=== PATIENT | female | born 1945 | race Caucasian/White ===

== ENCOUNTER 2018-07-05 23:28 | Emergency (ER) | payer MEDICARE ==
[2018-07-06] MEDS ORDERED: DEXAMETHASONE 10 MG/ML VIAL ONE (00:30)
[2018-07-06] MEDS ORDERED: KETOROLAC 30 MG/ML INJ ONE (00:31)
[2018-07-06] MEDS ORDERED: NA CHLORIDE 0.9% 50 ML IV ONE (00:31)
--- NOTE | 2018-07-06 00:48 | ER ---
Nurse's Notes [facility] Name: Margret Farris Age: 73 yrs Sex: Female : 1945 Arrival Date: 07/05/2018 Time: 23:32 Bed 27 Private MD: Diagnosis: Pain in right foot;Unspecified kidney failure-insufficency Presentation: 07/06 00:30 Presenting complaint: Patient states: she has left foot pain since 1130 am today. mg2 denies trauma or fall. 00:30 Transition of care: patient was not received from another setting of care. Onset of mg2 symptoms was July 05, 2018 at 11:30. Risk Assessment: Do you want to hurt yourself or someone else? Patient reports no desire to harm self or others. Initial Sepsis Screen: Does the patient meet any 2 criteria? No. Patient's initial sepsis screen is negative. Does the patient have a suspected source of infection? No. Patient's initial sepsis screen is negative. Care prior to arrival: None. 00:30 Method Of Arrival: Wheelchair mg2 00:30 Acuity: SHARON 3 mg2 Triage Assessment: 01:00 General: Appears in no apparent distress. comfortable, Behavior is calm, cooperative. mg2 Pain: Complains of pain in left foot Pain does not radiate. Pain currently is 5 out of 10 on a pain scale. Quality of pain is described as aching, Pain began gradually, 1 day ago. EENT: No signs and/or symptoms were reported regarding the EENT system. Neuro: Level of Consciousness is awake, alert, obeys commands, Oriented to person, place, time, situation. Cardiovascular: Capillary refill < 3 seconds Patient's skin is warm and dry. Respiratory: Airway is patent Respiratory effort is even, unlabored, Respiratory pattern is regular, symmetrical. GI: No signs and/or symptoms were reported involving the gastrointestinal system. : No signs and/or symptoms were reported regarding the genitourinary system. Derm: Skin is intact, is healthy with good turgor, Skin is pink, warm \T\ dry. normal. Musculoskeletal: Circulation, motion, and sensation intact. Reports pain in left foot. Historical: - Allergies: 00:59 Augmentin; mg2 00:59 Bextra; mg2 00:59 Codeine; mg2 00:59 Ephedrine Analogues; mg2 00:59 Prednisone; mg2 00:59 Sulfa (Sulfonamide Antibiotics); mg2 00:59 TETRACYCLINES; mg2 - Home Meds: 00:59 aspirin 81 mg Oral TbEC 1 tab once daily [Active]; biotin 5000 mg Oral chew daily mg2 [Active]; Calcium Citrate Oral daily [Active]; Klor-Con 10 Oral [Active]; Lasix Oral [Active]; losartan Oral [Active]; magnesium oxide 250 mg Oral tab daily [Active]; spironolactone 25 mg Oral tab 1 tab 2 times per day [Active]; - PMHx: 00:59 High Cholesterol; Hypertension; seasonal allergies; TIA; mg2 - PSHx: 00:59 Tubal ligation; Lumpectomy; Hysterectomy; cervical fusions; mg2 - Immunization history:: Flu vaccine status is unknown. - Social history:: Smoking status: Patient/guardian denies using tobacco, Patient/guardian denies using alcohol, street drugs, IV drugs. - Family history:: not pertinent. - Ebola Screening: : No symptoms or risks identified at this time. Screenin:59 Abuse screen: Denies threats or abuse. Denies injuries from another. Nutritional mg2 screening: No deficits noted. Tuberculosis screening: No symptoms or risk factors identified. Fall Risk IV access (20 points). Assessment: 01:02 Reassessment: No changes from previously documented assessment. still waiting for lab mg2 results. 01:45 Reassessment: Patient appears in no apparent distress at this time. Patient and/or mg2 family updated on plan of care and expected duration. Pain level reassessed. Patient is alert, oriented x 3, equal unlabored respirations, skin warm/dry/pink. Vital Signs: 07/05 23:30 BP 132 / 74; Pulse 86; Resp 18; Temp 98.7; Pulse Ox 100% on R/A; Weight 65.77 kg; mg2 Height 5 ft. 4 in. (162.56 cm); Pain 5/10; 07/06 01:35 BP 130 / 78; Pulse 80; Resp 18; Pulse Ox 100% on R/A; Pain 2/10; mg2 07/05 23:30 Body Mass Index 24.89 (65.77 kg, 162.56 cm) mg2 ED Course: 07/05 23:32 Patient arrived in ED. ag3 23:37 Mychal Solis MD is Attending Physician. daily 23:43 Gardose, Ravin, RN is Primary Nurse. mg2 07/06 00:18 X-ray completed. Portable x-ray completed in exam room. Patient tolerated procedure sg4 well. 00:48 Fadi Honeycutt DPM is Referral Physician. daily 00:55 Foot Left 3 View In Process Unspecified. EDMS 00:55 Triage completed. mg2 01:01 Arm band placed on. mg2 01:01 No provider procedures requiring assistance completed. Inserted saline lock: 22 gauge mg2 in right wrist, using aseptic technique. Blood collected. 01:16 Kedar Potter MD is Referral Physician. daily 01:46 Patient has correct armband on for positive identification. mg2 01:46 IV discontinued, intact, bleeding controlled, No redness/swelling at site. Pressure mg2 dressing applied. 01:46 Ortho shoe applied to left foot. mg2 Administered Medications: 00:53 Drug: Decadron - Dexamethasone 10 mg Route: IVP; Site: right wrist; mg2 01:45 Follow up: Response: No adverse reaction; Marked relief of symptoms mg2 00:53 Drug: TORadol 30 mg Route: IVP; Site: right wrist; mg2 01:44 Follow up: Response: No adverse reaction; Marked relief of symptoms mg2 Outcome: 00:48 Discharge ordered by . daily 01:46 Discharged to home via wheelchair. mg2 01:46 Condition: stable 01:46 Discharge instructions given to patient, family, Instructed on discharge instructions, follow up and referral plans. medication usage, Demonstrated understanding of instructions, follow-up care, medications, Prescriptions given X 2. 01:47 Patient left the ED. mg2 Signatures: Dispatcher [employer] EDMS Mychal Solis MD MD cha Gardose, Michele, RN RN mg2 Laura Stock Susana sg4
--- NOTE | 2018-07-06 00:48 | EDPHYS ---
Physician Documentation [facility] Name: Margret Farris Age: 73 yrs Sex: Female : 1945 Arrival Date: 07/05/2018 Time: 23:32 Bed 27 Private MD: ED Physician Mychal Solis HPI: 07/06 00:03 This 73 yrs old Female presents to ER via Unassigned with complaints of Foot daily Pain. 00:03 The patient presents with decreased range of motion, pain, that is acute. The daily complaints affect the right foot, lateral aspect of right toes, plantar aspect of right first toe, plantar aspect of right second toe, plantar aspect of right third toe, plantar aspect of right fourth toe, plantar aspect of right fifth toe and ball of right foot. Context: The problem was sustained at home, resulted from. Onset: The symptoms/episode began/occurred 3 day(s) ago. Modifying factors: The symptoms are alleviated by elevation of extremity, the symptoms are aggravated by weight bearing, movement. Associated signs and symptoms: The patient has no apparent associated signs or symptoms. Severity of symptoms: At their worst the symptoms were moderate, in the emergency department the symptoms are unchanged. The patient has experienced similar episodes in the past, multiple times. Historical: - Allergies: 00:59 Augmentin; mg2 00:59 Bextra; mg2 00:59 Codeine; mg2 00:59 Ephedrine Analogues; mg2 00:59 Prednisone; mg2 00:59 Sulfa (Sulfonamide Antibiotics); mg2 00:59 TETRACYCLINES; mg2 - Home Meds: 00:59 aspirin 81 mg Oral TbEC 1 tab once daily [Active]; biotin 5000 mg Oral chew daily mg2 [Active]; Calcium Citrate Oral daily [Active]; Klor-Con 10 Oral [Active]; Lasix Oral [Active]; losartan Oral [Active]; magnesium oxide 250 mg Oral tab daily [Active]; spironolactone 25 mg Oral tab 1 tab 2 times per day [Active]; - PMHx: 00:59 High Cholesterol; Hypertension; seasonal allergies; TIA; mg2 - PSHx: 00:59 Tubal ligation; Lumpectomy; Hysterectomy; cervical fusions; mg2 - Immunization history:: Flu vaccine status is unknown. - Social history:: Smoking status: Patient/guardian denies using tobacco, Patient/guardian denies using alcohol, street drugs, IV drugs. - Family history:: not pertinent. - Ebola Screening: : No symptoms or risks identified at this time. ROS: 00:03 Constitutional: Negative for fever, chills, and weight loss, Eyes: Negative for injury, daily pain, redness, and discharge, ENT: Negative for injury, pain, and discharge, Neck: Negative for injury, pain, and swelling, Cardiovascular: Negative for chest pain, palpitations, and edema, Respiratory: Negative for shortness of breath, cough, wheezing, and pleuritic chest pain, Abdomen/GI: Negative for abdominal pain, nausea, vomiting, diarrhea, and constipation, Back: Negative for injury and pain, : Negative for injury, bleeding, discharge, and swelling, Skin: Negative for injury, rash, and discoloration, Neuro: Negative for headache, weakness, numbness, tingling, and seizure, Psych: Negative for depression, anxiety, suicide ideation, homicidal ideation, and hallucinations, Allergy/Immunology: Negative for hives, rash, and allergies, Endocrine: Negative for neck swelling, polydipsia, polyuria, polyphagia, and marked weight changes, Hematologic/Lymphatic: Negative for swollen nodes, abnormal bleeding, and unusual bruising. 00:03 MS/extremity: Positive for pain, tenderness, of the lateral aspect of right toes, medial aspect of right toes, plantar aspect of right first toe, plantar aspect of right second toe, plantar aspect of right third toe, plantar aspect of right fourth toe, plantar aspect of right fifth toe and ball of right foot. Exam: 00:03 Constitutional: This is a well developed, well nourished patient who is awake, alert, daily and in no acute distress. Head/Face: Normocephalic, atraumatic. Eyes: Pupils equal round and reactive to light, extra-ocular motions intact. Lids and lashes normal. Conjunctiva and sclera are non-icteric and not injected. Cornea within normal limits. Periorbital areas with no swelling, redness, or edema. ENT: Nares patent. No nasal discharge, no septal abnormalities noted. Tympanic membranes are normal and external auditory canals are clear. Oropharynx with no redness, swelling, or masses, exudates, or evidence of obstruction, uvula midline. Mucous membranes moist. Neck: Trachea midline, no thyromegaly or masses palpated, and no cervical lymphadenopathy. Supple, full range of motion without nuchal rigidity, or vertebral point tenderness. No Meningismus. Chest/axilla: Normal chest wall appearance and motion. Nontender with no deformity. No lesions are appreciated. Cardiovascular: Regular rate and rhythm with a normal S1 and S2. No gallops, murmurs, or rubs. Normal PMI, no JVD. No pulse deficits. Respiratory: Lungs have equal breath sounds bilaterally, clear to auscultation and percussion. No rales, rhonchi or wheezes noted. No increased work of breathing, no retractions or nasal flaring. Abdomen/GI: Soft, non-tender, with normal bowel sounds. No distension or tympany. No guarding or rebound. No evidence of tenderness throughout. Back: No spinal tenderness. No costovertebral tenderness. Full range of motion. Female : Normal external genitalia. Skin: Warm, dry with normal turgor. Normal color with no rashes, no lesions, and no evidence of cellulitis. Neuro: Awake and alert, GCS 15, oriented to person, place, time, and situation. Cranial nerves II-XII grossly intact. Motor strength 5/5 in all extremities. Sensory grossly intact. Cerebellar exam normal. Normal gait. Psych: Awake, alert, with orientation to person, place and time. Behavior, mood, and affect are within normal limits. 00:03 Musculoskeletal/extremity: DVT Exam: no swelling, negative Homans' sign noted on exam, no appreciated bluish discoloration, no erythema, no increased warmth, pain, tenderness. 01:10 Musculoskeletal/extremity: Extremities: noted in the lateral aspect of right toes, daily plantar aspect of right first toe, plantar aspect of right second toe, plantar aspect of right third toe, plantar aspect of right fourth toe, plantar aspect of right fifth toe and ball of right foot: decreased ROM, pain, ROM: limited active range of motion, limited passive range of motion, Circulation is intact in all extremities. Sensation intact. Compartment Syndrome exam of affected extremity: is normal. Weight bearing: can bear weight with assistance only. Vital Signs: 07/05 23:30 BP 132 / 74; Pulse 86; Resp 18; Temp 98.7; Pulse Ox 100% on R/A; Weight 65.77 kg; mg2 Height 5 ft. 4 in. (162.56 cm); Pain 5/10; 12/22 01:35 BP 130 / 78; Pulse 80; Resp 18; Pulse Ox 100% on R/A; Pain 2/10; mg2 07/05 23:30 Body Mass Index 24.89 (65.77 kg, 162.56 cm) mg2 MDM: 07/05 23:37 Patient medically screened. [facility] 07/06 00:06 Data reviewed: vital signs, nurses notes, lab test result(s), radiologic studies, plain [facility] films. 07/06 00:03 Order name: CBC with Diff; Complete Time: 01:14 [facility] 07/06 00:03 Order name: Comprehensive Metabolic Panel; Complete Time: 01:14 [facility] 07/06 00:03 Order name: Sed Rate; Complete Time: :14 [facility] 07/06 00:16 Order name: Foot Left 3 View EDMS 07/06 00:07 Order name: Post-op shoe; Complete Time: 01:44 [facility] Administered Medications: 00:53 Drug: Decadron - Dexamethasone 10 mg Route: IVP; Site: right wrist; mg2 01:45 Follow up: Response: No adverse reaction; Marked relief of symptoms mg2 00:53 Drug: TORadol 30 mg Route: IVP; Site: right wrist; mg2 01:44 Follow up: Response: No adverse reaction; Marked relief of symptoms mg2 Disposition: 07/06/18 00:48 Discharged to Home. Impression: Pain in right foot, Unspecified kidney failure - insufficency. - Condition is Stable. - Discharge Instructions: Sosa Neuralgia, Chronic Kidney Disease, Adult, [id number], Foot Pain. - Prescriptions for Tramadol 50 mg Oral Tablet - take 1 tablet by ORAL route every 8 hours as needed; 12 tablet. Medrol (Pool) 4 mg Oral Tablets, Dose Pack - take 1 tablet by ORAL route as directed - follow package instructions; 1 packet. - Medication Reconciliation Form, Thank You Letter, Antibiotic Education, Prescription Opioid Use form. - Follow up: Private Physician; When: 2 - 3 days; Reason: Recheck today's complaints, Continuance of care, Re-evaluation by your physician. Follow up: Dr. Fadi Honeycutt; When: 2 - 3 days; Reason: Recheck today's complaints, Re-evaluation by your physician. Follow up: Kedar Potter MD; When: 2 - 3 days; Reason: Recheck today's complaints, Re-evaluation by your physician. - Problem is new. - Symptoms have improved. Signatures: Dispatcher [employer] [facility] Mychal Solis MD MD cha Gardose, Michele, RN RN mg2 Corrections: (The following items were deleted from the chart) 00:16 00:04 Foot Right 3 View+[email or web address] ordered. [facility] 01:15 00:48 07/06/2018 00:48 Discharged to Home. Impression: Pain in right foot. Condition is daily Stable. Discharge Instructions: Foot Pain, Sosa Neuralgia. Prescriptions for ketorolac 10 mg Oral tablet - take 1 tablet by ORAL route every 6 hours for up to 5 days total use; 20 tablet, Tramadol 50 mg Oral Tablet - take 1 tablet by ORAL route every 8 hours as needed; 12 tablet. and Forms are Medication Reconciliation Form, Thank You Letter, Antibiotic Education, Prescription Opioid Use. Follow up: Private Physician; When: 2 - 3 days; Reason: Recheck today's complaints, Continuance of care, Re-evaluation by your physician. Follow up: Dr. Fadi Honeycutt; When: 2 - 3 days; Reason: Recheck today's complaints, Re-evaluation by your physician. Problem is new. Symptoms have improved. [facility] :16 01:15 07/06/2018 00:48 Discharged to Home. Impression: Pain in right foot; Unspecified daily kidney failure - insufficency. Condition is Stable. Discharge Instructions: Foot Pain, Sosa Neuralgia. Prescriptions for ketorolac 10 mg Oral tablet - take 1 tablet by ORAL route every 6 hours for up to 5 days total use; 20 tablet, Tramadol 50 mg Oral Tablet - take 1 tablet by ORAL route every 8 hours as needed; 12 tablet. and Forms are Medication Reconciliation Form, Thank You Letter, Antibiotic Education, Prescription Opioid Use. Follow up: Private Physician; When: 2 - 3 days; Reason: Recheck today's complaints, Continuance of care, Re-evaluation by your physician. Follow up: Dr. Fadi Honeycutt; When: 2 - 3 days; Reason: Recheck today's complaints, Re-evaluation by your physician. Problem is new. Symptoms have improved. daily 01:47 01:16 07/06/2018 00:48 Discharged to Home. Impression: Pain in right foot; Unspecified mg2 kidney failure - insufficency. Condition is Stable. Discharge Instructions: Foot Pain, Sosa Neuralgia. Prescriptions for ketorolac 10 mg Oral tablet - take 1 tablet by ORAL route every 6 hours for up to 5 days total use; 20 tablet, Tramadol 50 mg Oral Tablet - take 1 tablet by ORAL route every 8 hours as needed; 12 tablet. and Forms are Medication Reconciliation Form, Thank You Letter, Antibiotic Education, Prescription Opioid Use. Follow up: Private Physician; When: 2 - 3 days; Reason: Recheck today's complaints, Continuance of care, Re-evaluation by your physician. Follow up: Dr. Fadi Honeycutt; When: 2 - 3 days; Reason: Recheck today's complaints, Re-evaluation by your physician. Follow up: Kedar Potter; When: 2 - 3 days; Reason: Recheck today's complaints, Re-evaluation by your physician. Problem is new. Symptoms have improved. daily
[2018-07-06 00:49] LABS: Absolute Lymphocytes (CBC) 2.9 K/uL (0.7-4.9); Absolute Monocytes 0.6 K/uL (0.1-1.3); Absolute Neutrophil 4.5 K/uL (1.8-8.0); Basophils % 0.6 % (0-1.3); Eosinophils % 2.7 % (0-4.4); Hematocrit 46.2 % (36.0-45.0); Lymphocytes % 34.8 % (15.3-44.8); MPV 8.8 fL (7.6-11.3); Monocytes % 7.6 % (3.3-12.3); RBC Red Blood Cell Count 4.82 M/uL (3.86-4.86)
[2018-07-06 01:12] LABS: Albumin 3.9 g/dL (3.4-5.0); Bilirubin Total 0.3 mg/dL (0.2-1.0); Protein, Total 8.1 g/dL (6.4-8.2)
[2018-07-06 02:48] VITALS: BP 132/74; TEMP 98.7; O2SAT 100
--- NOTE | 2018-07-06 09:27 | RAD REPORT ---
EXAM DESCRIPTION: RAD - Foot Left 3 View - 07/06/2018 12:54 am CLINICAL HISTORY: Left Foot pain FINDINGS: No fracture or dislocation is seen.
== END 2018-07-06 01:47 | disposition home or self-care (01) ==
LOC: ER 23:28
DX: M79.671 Pain in right foot (principal); N28.9 Disorder of kidney and ureter, unspecified; E78.00 Pure hypercholesterolemia, unspecified; I10 Essential (primary) hypertension; Z79.82 Long term (current) use of aspirin; Z79.899 Other long term (current) drug therapy; Z86.73 Personal history of transient ischemic attack (TIA), and cerebral infarction without residual deficits
CPT/HCPCS: 36415; 73630; 80053; 85025; 85652; 96374; 96375; 99284; J1100

== ENCOUNTER 2019-03-18 15:26 | Emergency (ER) | payer MEDICARE ==
[2019-03-18 15:52] LABS: Absolute Lymphocytes (CBC) 2.8 K/uL (0.7-4.9); Basophils % 0.7 % (0-1.3); Hematocrit 44.4 % (36.0-45.0); Lymphocytes % 41.4 % (15.3-44.8); MPV 8.4 fL (7.6-11.3); RBC Red Blood Cell Count 4.62 M/uL (3.86-4.86)
[2019-03-18 15:57] LABS: Protime INR 0.94
[2019-03-18 16:12] LABS: Potassium 3.8 mmol/L (3.5-5.1)
[2019-03-18] MEDS ORDERED: NA CHLORIDE 0.9% 1,000 ML ONE (16:12)
[2019-03-18] MEDS ORDERED: FOLIC ACID 5 MG/ML VIAL ONE (16:12)
--- NOTE | 2019-03-18 16:35 | RAD REPORT ---
EXAM DESCRIPTION: CT - Head Brain Wo Cont - 03/18/2019 4:11 pm CLINICAL HISTORY: Visual changes, TIA, hypertension COMPARISON: CT October 2017 TECHNIQUE: Axial 5 mm thick images of the head were obtained without IV contrast. All CT scans are performed using dose optimization technique as appropriate and may include automated exposure control or mA/KV adjustment according to patient size. FINDINGS: No intracranial hemorrhage, mass, edema or shift of mid-line structures. No acute infarcti on changes seen. No abnormal extra-axial fluid collections. Ventricles are normal. No significant atr ophy changes. Patient does have chronic ischemic change in the cerebral white matter similar to onur rison. Mastoid air cells and visualized portions of the paranasal sinuses are clear. No acute bony findings. IMPRESSION: No acute intracranial finding seen. Chronic ischemic changes are similar to the October study.
--- NOTE | 2019-03-18 17:11 | RAD REPORT ---
EXAM DESCRIPTION: CT - Head angio - 03/18/2019 4:57 pm CLINICAL HISTORY: Visual disturbances;Aphasia TECHNIQUE: During dynamic enhancement using nonionic IV contrast, axial 1 millimeter thick images of the head were obtained. Sagittal and axial reconstruction images were generated using MIP technique and reviewed. All CT scans are performed using dose optimization technique as appropriate and may include automated exposure control or mA/KV adjustment according to patient size. COMPARISON: CT head March 18 FINDINGS: No aneurysm or vascular malformation identified. Major venous sinuses are patent. No stenosis, named branch occlusion, vasculitis or other significant vascular finding identifiable. IMPRESSION: Negative CT angio head examination.
--- NOTE | 2019-03-18 17:32 | RAD REPORT ---
EXAM DESCRIPTION: MRI - Brain Wo Cont - 03/18/2019 5:23 pm CLINICAL HISTORY: Dizziness;Visual disturbances COMPARISON: CT head same date, MR brain 2017 TECHNIQUE: Sagittal T1-weighted images were obtained along with axial PD, heavily T2-weighted and T2 -FLAIR images. Axial DWI and ADC mapping sequences were also obtained along with coronal heavily T2-w eighted images. FINDINGS: No intracranial hemorrhage, mass or acute infarction. There is no edema or shift of midlin e structures. No extra-axial fluid collections. Andres-matter/white matter junction is preserved. Signa l voids are seen as a normal finding in the major intracranial vessels. Atrophy changes are mild and stable. Chronic ischemic changes are scattered throughout the cerebral w carlito matter showing little or no progression from 2017. Ventricles are in proportion to any volume lo ss. Mastoid air cells and paranasal sinuses are clear. No globe or orbital content acute finding. No sella or supra sella abnormality. IMPRESSION: No acute infarction. No acute intracranial finding. Atrophy and chronic ischemic changes are present but show little or no progression from 2017.
--- NOTE | 2019-03-18 17:34 | EKG ---
Test Date: 2019-03-18 Test Time: 15:49:04 Refueling Rampman: DURAN MEASUREMENT RESULTS: Intervals: Rate: 73 MI: 130 QRSD: 74 QT: 388 QTc: 427 [place]: P: 30 MI: 130 QRS: 24 T: 49 INTERPRETIVE STATEMENTS: Normal sinus rhythm Normal ECG Compared to ECG 11/28/2016 19:36:44 Myocardial infarct finding no longer present Electronically Signed On 03-18-19 17:33:36 CDT by Tre Durham
--- NOTE | 2019-03-18 17:48 | ER ---
Nurse's Notes [facility] Name: Margret Farris Age: 73 yrs Sex: Female : 1945 Arrival Date: 03/18/2019 Time: 15:31 Bed 3 Private MD: Diagnosis: Transient cerebral ischemic attack, unspecified;Visual disturbances Presentation: 03/18 15:31 Presenting complaint: Patient states: Sitting at computer when patient experienced ss sudden onset of bright light to her R eye lasting ten minutes. Patient reports that when she gets anxious her stomach begins to bother her and her whole body begins to tingle. On arrival to ED, patient reports that her symptoms have completely resolved at this time. Transition of care: patient was not received from another setting of care. Onset of symptoms was March 18, 2019. Risk Assessment: Do you want to hurt yourself or someone else? Patient reports no desire to harm self or others. Initial Sepsis Screen: Does the patient meet any 2 criteria? No. Patient's initial sepsis screen is negative. Does the patient have a suspected source of infection? No. Patient's initial sepsis screen is negative. Care prior to arrival: None. 15:31 Method Of Arrival: EMS: [facility] 15:31 Acuity: SHARON 3 ss Triage Assessment: 15:31 General: Appears in no apparent distress. comfortable, well groomed, well developed, sv Behavior is calm, cooperative, appropriate for age. Pain: Denies pain. Neuro: Level of Consciousness is awake, alert, obeys commands, Oriented to person, place, time, situation, Retail Service Representative are equal bilaterally Moves all extremities. Gait is steady, Speech is normal, Facial symmetry appears normal, Denies blurred vision dizziness, numbness headache diplopia. Respiratory: Airway is patent Respiratory effort is even, unlabored, Respiratory pattern is regular, symmetrical. Derm: Skin is pink, warm \T\ dry. Historical: - Allergies: 15:33 Augmentin; ss 15:33 Bextra; ss 15:33 Codeine; ss 15:33 Ephedrine Analogues; ss 15:33 Prednisone; ss 15:33 Sulfa (Sulfonamide Antibiotics); ss 15:33 TETRACYCLINES; ss - PMHx: 15:33 High Cholesterol; Hypertension; seasonal allergies; TIA; ss - PSHx: 15:33 Tubal ligation; Lumpectomy; Hysterectomy; cervical fusions; ss - Immunization history:: Pneumococcal vaccine is not up to date, Flu vaccine is not up to date. - Social history:: Smoking status: Patient/guardian denies using tobacco. - Ebola Screening: : Patient denies exposure to infectious person Patient denies travel to an Ebola-affected area in the 21 days before illness onset. - Family history:: not pertinent. Screenin:34 Abuse screen: Denies threats or abuse. Denies injuries from another. Nutritional sv screening: No deficits noted. Tuberculosis screening: No symptoms or risk factors identified. Fall Risk None identified. 15:35 Patient has been NPO before screening. The patient is alert, able to follow commands. sv The patient does not exhibit slurred or garbled speech The patient is not exhibiting difficulty speaking. The patient does not exhibit difficulty understanding words. The patient is able to swallow own secretions with no drooling or need for suction. Patient tolerated one teaspoon of water. No drooling, immediate coughing, gurgling, or clearing of the throat was noted. The patient tolerated 90mL of water. No drooling, immediate coughing, gurgling, or clearing of the throat was noted. The patient passed the bedside swallow screening. Oral medications may be given as ordered. Contact Physician for further diet orders. Provider notified of bedside swallow screening results: Mychal Solis MD. Assessment: 15:59 Reassessment: Dr Solis at bedside. sv 16:30 Reassessment: Patient appears in no apparent distress at this time. No changes from sv previously documented assessment. Patient and/or family updated on plan of care and expected duration. Pain level reassessed. Patient is alert, oriented x 3, equal unlabored respirations, skin warm/dry/pink. 17:50 Reassessment: Patient appears in no apparent distress at this time. No changes from sv previously documented assessment. Patient and/or family updated on plan of care and expected duration. Pain level reassessed. Patient is alert, oriented x 3, equal unlabored respirations, skin warm/dry/pink. 18:05 Reassessment: Pt waiting on radiology results before discharge. sv 19:34 Reassessment: Patient is alert, oriented x 3, equal unlabored respirations, skin lp1 warm/dry/pink. Patient states feeling better. General: Appears in no apparent distress. Neuro: Gait is steady, Speech is normal. Vital Signs: 15:33 Pulse 72; Resp 16; Temp 98.0(O); Pulse Ox 100% on R/A; Weight 63.5 kg; Height 5 ft. 0 ss in. (152.40 cm); Pain 0/10; 15:41 BP 143 / 84; sv 16:30 BP 138 / 77; Pulse 69; Resp 12; Pulse Ox 100% ; sv 18:04 BP 111 / 83; Pulse 72; Resp 14; Pulse Ox 100% on R/A; sv 18:45 BP 110 / 70; Pulse 64; Resp 14; Pulse Ox 100% ; sv 15:33 Body Mass Index 27.34 (63.50 kg, 152.40 cm) ss NIH Stroke Scale Scores: 15:35 NIHSS Score: 0 sv 17:32 NIHSS Score: 0 daily ED Course: 15:25 Initial lab(s) drawn, by me, sent to lab. Inserted saline lock: 20 gauge in right sv antecubital area, using aseptic technique. Blood collected. Flushed right antecubital with 5 ml normal saline. 15:25 radiation monitor on. Pulse ox on. NIBP on. sv 15:31 Patient arrived in ED. ss 15:32 Ina Quinn, RN is Primary Nurse. sv 15:33 Triage completed. ss 15:33 Arm band placed on right wrist. ss 15:34 Patient has correct armband on for positive identification. Placed in gown. Bed in low sv position. Call light in reach. Side rails up X2. 15:48 Basic Metabolic Panel Sent. sv 15:48 CBC with Diff Sent. sv 15:48 Protime (+inr) Sent. sv 15:48 Ptt, Activated Sent. sv 15:52 EKG done, by fiber technician. reviewed by Mychal Solis MD. sm3 15:53 Mychal Solis MD is Attending Physician. daily 16:21 CT Head Brain wo Cont In Process Unspecified. EDMS 16:[address] via wheelchair. sv 17:13 CT Head Angio In Process Unspecified. EDMS 17:26 Brain Wo Cont In Process Unspecified. EDMS 17:42 US Carotid Artery Bilateral In Process Unspecified. EDMS 17:47 Jamie Lim MD is Referral Physician. daily 17:47 Michael Geiger MD is Referral Physician. daily 18:02 Urine collected: clean catch specimen, clear. jl7 18:05 Awaiting radiology results. sv 19:16 Primary Nurse role handed off by Ina Quinn RN sv 19:34 Sri Perry, SANTO is Primary Nurse. lp1 19:35 No provider procedures requiring assistance completed. IV discontinued, No lp1 redness/swelling at site. Pressure dressing applied. Administered Medications: 16:17 Drug: NS 0.9% 1000 ml Route: IV; Rate: 1 bolus; Site: right antecubital; sv 18:45 Follow up: Response: No adverse reaction; IV Status: Completed infusion; IV Intake: jl7 1000ml 16:17 Drug: foLIC Acid 1 mg Route: IVPB; Site: right antecubital; sv 18:44 Follow up: Response: No adverse reaction; IV Status: Completed infusion jl7 18:04 Drug: Aspirin Chewable Tablet 162 mg {Note: pt took 2 81 mg before coming.} Route: PO; sv 18:44 Follow up: Response: No adverse reaction jl7 Point of Care Testing: Blood Glucose: 15:33 Blood Glucose: 115 mg/dL; sv Ranges: Intake: 18:45 IV: 1000ml; Total: 1000ml. jl7 Outcome: 17:46 Discharge ordered by . daily 19:35 Discharged to home ambulatory. lp1 19:35 Condition: good 19:35 Discharge instructions given to patient, Instructed on discharge instructions, follow up and referral plans. medication usage, Demonstrated understanding of instructions, follow-up care, medications, Prescriptions given X 1. 19:35 Patient left the ED. lp1 NIH Stroke Scale - NIH Stroke Score Date: 03/18/2019 Time: 15:35 Total Score = 0 1a. Level of Consciousness (LOC) - 0(Alert) 1b. Level of Consciousness (LOC) (Year \T\ Age) - 0(Both) 1c. LOC Commands (Open \T\ Closes Eyes/Lead Case Manager) - 0(Both) 2. Best Gaze (Lateral Gaze Paresis) - 0(Normal) 3. Visual Field Loss - 0(No visual loss) 4. Facial Palsy - 0(Normal) 5a. Left Arm: Motor (10-second hold) - 0(No drift) 5b. Right Arm: Motor (10-second hold) - 0(No drift) 6a. Left Leg: Motor (5-second hold - always test supine) - 0(No drift) 6b. Right Leg: Motor (5-second hold - always test supine) - 0(No drift) 7. Limb Ataxia (finger/nose \T\ heel/wallace - test with eyes open) - 0(Absent) 8. Sensory Loss (pinprick arms/legs/face) - 0(Normal) 9. Best Language: Aphasia (description/naming/reading) - 0(No aphasia) 10. Dysarthria (speech clarity - read or repeat words) - 0(Normal) 11. Extinction and Inattention (visual/tactile/auditory/spatial/personal) - 0(No abnormality) Initials: lorna NIH Stroke Scale - NIH Stroke Score Date: 03/18/2019 Time: 17:32 Total Score = 0 1a. Level of Consciousness (LOC) - 0(Alert) 1b. Level of Consciousness (LOC) (Year \T\ Age) - 0(Both) 1c. LOC Commands (Open \T\ Closes Eyes/Lead Case Manager) - 0(Both) 2. Best Gaze (Lateral Gaze Paresis) - 0(Normal) 3. Visual Field Loss - 0(No visual loss) 4. Facial Palsy - 0(Normal) 5a. Left Arm: Motor (10-second hold) - 0(No drift) 5b. Right Arm: Motor (10-second hold) - 0(No drift) 6a. Left Leg: Motor (5-second hold - always test supine) - 0(No drift) 6b. Right Leg: Motor (5-second hold - always test supine) - 0(No drift) 7. Limb Ataxia (finger/nose \T\ heel/wallace - test with eyes open) - 0(Absent) 8. Sensory Loss (pinprick arms/legs/face) - 0(Normal) 9. Best Language: Aphasia (description/naming/reading) - 0(No aphasia) 10. Dysarthria (speech clarity - read or repeat words) - 0(Normal) 11. Extinction and Inattention (visual/tactile/auditory/spatial/personal) - 0(No abnormality) Initials: daily Signatures: Dispatcher [employer] Ina Courtney RN RN sv Anderson, Corey, MD MD cha Smirch, Shelby, RN RN ss Sri Perry RN RN lp1 Lisa Duran RN RN jl7 vIonne De La Cruz sm3 Corrections: (The following items were deleted from the chart) 18:05 18:04 Aspirin Chewable Tablet 162 mg PO sv sv
--- NOTE | 2019-03-18 17:49 | EDPHYS ---
Physician Documentation [facility] Name: Margret Farris Age: 73 yrs Sex: Female : 1945 Arrival Date: 03/18/2019 Time: 15:31 Bed 3 Private MD: ED Physician Mychal Solis HPI: 03/18 16:08 This 73 yrs old Female presents to ER via EMS with complaints of Vision daily Problem. 16:08 The patient is experiencing blurred vision. Onset: The symptoms/episode began/occurred daily at 14:00. Duration: the symptoms last 15 minute(s). The patient's problem is reported as dysphasia, slurred speech. Duration: The episode is continuous. The symptoms are alleviated by nothing. The symptoms are aggravated by nothing. Associated signs and symptoms: Pertinent positives: nausea. Patient wears glasses. Severity of symptoms: At their worst the symptoms were mild in the emergency department the symptoms are unchanged. Patient's baseline: Neuro: alert and fully oriented. Historical: - Allergies: 15:33 Augmentin; ss 15:33 Bextra; ss 15:33 Codeine; ss 15:33 Ephedrine Analogues; ss 15:33 Prednisone; ss 15:33 Sulfa (Sulfonamide Antibiotics); ss 15:33 TETRACYCLINES; ss - PMHx: 15:33 High Cholesterol; Hypertension; seasonal allergies; TIA; ss - PSHx: 15:33 Tubal ligation; Lumpectomy; Hysterectomy; cervical fusions; ss - Immunization history:: Pneumococcal vaccine is not up to date, Flu vaccine is not up to date. - Social history:: Smoking status: Patient/guardian denies using tobacco. - Ebola Screening: : Patient denies exposure to infectious person Patient denies travel to an Ebola-affected area in the 21 days before illness onset. - Family history:: not pertinent. ROS: 16:08 Constitutional: Negative for fever, chills, and weight loss, Eyes: Negative for injury, daily pain, redness, and discharge, ENT: Negative for injury, pain, and discharge, Neck: Negative for injury, pain, and swelling, Cardiovascular: Negative for chest pain, palpitations, and edema, Respiratory: Negative for shortness of breath, cough, wheezing, and pleuritic chest pain, Abdomen/GI: Negative for abdominal pain, nausea, vomiting, diarrhea, and constipation, Back: Negative for injury and pain, : Negative for injury, bleeding, discharge, and swelling, MS/Extremity: Negative for injury and deformity, Skin: Negative for injury, rash, and discoloration, Psych: Negative for depression, anxiety, suicide ideation, homicidal ideation, and hallucinations, Allergy/Immunology: Negative for hives, rash, and allergies, Endocrine: Negative for neck swelling, polydipsia, polyuria, polyphagia, and marked weight changes, Hematologic/Lymphatic: Negative for swollen nodes, abnormal bleeding, and unusual bruising. 16:08 Neuro: Positive for speech changes, visual changes. Exam: 16:08 Constitutional: This is a well developed, well nourished patient who is awake, alert, daily and in no acute distress. Head/Face: Normocephalic, atraumatic. Eyes: Pupils equal round and reactive to light, extra-ocular motions intact. Lids and lashes normal. Conjunctiva and sclera are non-icteric and not injected. Cornea within normal limits. Periorbital areas with no swelling, redness, or edema. ENT: Nares patent. No nasal discharge, no septal abnormalities noted. Tympanic membranes are normal and external auditory canals are clear. Oropharynx with no redness, swelling, or masses, exudates, or evidence of obstruction, uvula midline. Mucous membranes moist. Neck: Trachea midline, no thyromegaly or masses palpated, and no cervical lymphadenopathy. Supple, full range of motion without nuchal rigidity, or vertebral point tenderness. No Meningismus. Chest/axilla: Normal chest wall appearance and motion. Nontender with no deformity. No lesions are appreciated. Cardiovascular: Regular rate and rhythm with a normal S1 and S2. No gallops, murmurs, or rubs. Normal PMI, no JVD. No pulse deficits. Respiratory: Lungs have equal breath sounds bilaterally, clear to auscultation and percussion. No rales, rhonchi or wheezes noted. No increased work of breathing, no retractions or nasal flaring. Abdomen/GI: Soft, non-tender, with normal bowel sounds. No distension or tympany. No guarding or rebound. No evidence of tenderness throughout. Back: No spinal tenderness. No costovertebral tenderness. Full range of motion. Skin: Warm, dry with normal turgor. Normal color with no rashes, no lesions, and no evidence of cellulitis. MS/ Extremity: Pulses equal, no cyanosis. Neurovascular intact. Full, normal range of motion. Neuro: Awake and alert, GCS 15, oriented to person, place, time, and situation. Cranial nerves II-XII grossly intact. Motor strength 5/5 in all extremities. Sensory grossly intact. Cerebellar exam normal. Normal gait. Psych: Awake, alert, with orientation to person, place and time. Behavior, mood, and affect are within normal limits. 17:33 Radiologist reports: negative [facility] Vital Signs: 15:33 Pulse 72; Resp 16; Temp 98.0(O); Pulse Ox 100% on R/A; Weight 63.5 kg; Height 5 ft. 0 ss in. (152.40 cm); Pain 0/10; 15:41 BP 143 / 84; sv 16:30 BP 138 / 77; Pulse 69; Resp 12; Pulse Ox 100% ; sv 18:04 BP 111 / 83; Pulse 72; Resp 14; Pulse Ox 100% on R/A; sv 18:45 BP 110 / 70; Pulse 64; Resp 14; Pulse Ox 100% ; sv 15:33 Body Mass Index 27.34 (63.50 kg, 152.40 cm) NIH Stroke Scale Scores: 15:35 NIHSS Score: 0 sv 17:32 NIHSS Score: 0 [facility] MDM: 15:53 Patient medically screened. [facility] 16:11 Data reviewed: vital signs, nurses notes, lab test result(s), EKG, radiologic studies, [facility] CT scan, plain films. 16:16 ED course: speech 95 % back to normal, no tpa. [facility] 03/18 15:33 Order name: Basic Metabolic Panel; Complete Time: 16:53 03/18 15:33 Order name: CBC with Diff 03/18 15:33 Order name: Protime (+inr) 03/18 15:33 Order name: Ptt, Activated 03/18 15:57 Order name: CBC with Automated Diff; Complete Time: 16:08 EDMS 03/18 15:59 Order name: Protime (+INR); Complete Time: 16:08 EDMS 03/18 15:45 Order name: CT Head Brain wo Cont 03/18 15:59 Order name: PTT, Activated Partial Thromb; Complete Time: 16:08 EDMS 03/18 16:07 Order name: CT Head Angio [facility] 03/18 16:54 Order name: Urine Culture [facility] 03/18 17:02 Order name: US Carotid Artery Bilateral [facility] 03/18 17:14 Order name: Brain Wo Cont EDMS 03/18 18:07 Order name: Urine Dipstick--Ancillary (enter results); Complete Time: 18:38 em1 03/18 15:33 Order name: EKG; Complete Time: 15:34 sv 03/18 15:33 Order name: Accucheck; Complete Time: 15:33 sv 03/18 15:33 Order name: Cardiac monitoring; Complete Time: 15:33 sv 03/18 15:33 Order name: EKG - Nurse/Tech; Complete Time: 15:48 sv 03/18 15:33 Order name: IV Saline Lock; Complete Time: 15:33 sv 03/18 15:33 Order name: Labs collected and sent; Complete Time: 15:33 sv 03/18 15:33 Order name: O2 Per Protocol; Complete Time: 15:33 sv 03/18 15:33 Order name: O2 Sat Monitoring; Complete Time: 15:33 sv 03/18 16:54 Order name: Urine Dipstick-Ancillary (obtain specimen); Complete Time: 18:02 [facility] Administered Medications: 16:17 Drug: NS 0.9% 1000 ml Route: IV; Rate: 1 bolus; Site: right antecubital; sv 18:45 Follow up: Response: No adverse reaction; IV Status: Completed infusion; IV Intake: jl7 1000ml 16:17 Drug: foLIC Acid 1 mg Route: IVPB; Site: right antecubital; sv 18:44 Follow up: Response: No adverse reaction; IV Status: Completed infusion jl7 18:04 Drug: Aspirin Chewable Tablet 162 mg {Note: pt took 2 81 mg before coming.} Route: PO; sv 18:44 Follow up: Response: No adverse reaction jl7 Point of Care Testing: Blood Glucose: 15:33 Blood Glucose: 115 mg/dL; sv Ranges: Critical Glucose Levels:Adult <50 mg/dl or >400 mg/dl <40 mg/dl or >180 mg/dl Disposition: 03/18/19 17:46 Discharged to Home. Impression: Transient cerebral ischemic attack, unspecified, Visual disturbances. - Condition is Stable. - Discharge Instructions: Stroke Prevention, Transient Ischemic Attack, Transient Ischemic Attack, [id number], Aspirin and Your Heart, Stroke Prevention, [id number]. - Prescriptions for Folic Acid 1 mg Oral Tablet - take 1 tablet by ORAL route once daily; 30 tablet. - Medication Reconciliation Form, Thank You Letter, Antibiotic Education, Prescription Opioid Use form. - Follow up: Private Physician; When: 2 - 3 days; Reason: Recheck today's complaints, Continuance of care, Re-evaluation by your physician. Follow up: Jamie Lim MD; When: 2 - 3 days; Reason: Recheck today's complaints, Continuance of care, Re-evaluation by your physician. Follow up: Michael Geiger MD; When: 2 - 3 days; Reason: Recheck today's complaints, Continuance of care, Re-evaluation by your physician. - Problem is new. - Symptoms have improved. NIH Stroke Scale - NIH Stroke Score Date: 03/18/2019 Time: 15:35 Total Score = 0 1a. Level of Consciousness (LOC) - 0(Alert) 1b. Level of Consciousness (LOC) (Year \T\ Age) - 0(Both) 1c. LOC Commands (Open \T\ Closes Eyes/Office Employee) - 0(Both) 2. Best Gaze (Lateral Gaze Paresis) - 0(Normal) 3. Visual Field Loss - 0(No visual loss) 4. Facial Palsy - 0(Normal) 5a. Left Arm: Motor (10-second hold) - 0(No drift) 5b. Right Arm: Motor (10-second hold) - 0(No drift) 6a. Left Leg: Motor (5-second hold - always test supine) - 0(No drift) 6b. Right Leg: Motor (5-second hold - always test supine) - 0(No drift) 7. Limb Ataxia (finger/nose \T\ heel/wallace - test with eyes open) - 0(Absent) 8. Sensory Loss (pinprick arms/legs/face) - 0(Normal) 9. Best Language: Aphasia (description/naming/reading) - 0(No aphasia) 10. Dysarthria (speech clarity - read or repeat words) - 0(Normal) 11. Extinction and Inattention (visual/tactile/auditory/spatial/personal) - 0(No abnormality) Initials: NIH Stroke Scale - NIH Stroke Score Date: 03/18/2019 Time: 17:32 Total Score = 0 1a. Level of Consciousness (LOC) - 0(Alert) 1b. Level of Consciousness (LOC) (Year \T\ Age) - 0(Both) 1c. LOC Commands (Open \T\ Closes Eyes/Office Employee) - 0(Both) 2. Best Gaze (Lateral Gaze Paresis) - 0(Normal) 3. Visual Field Loss - 0(No visual loss) 4. Facial Palsy - 0(Normal) 5a. Left Arm: Motor (10-second hold) - 0(No drift) 5b. Right Arm: Motor (10-second hold) - 0(No drift) 6a. Left Leg: Motor (5-second hold - always test supine) - 0(No drift) 6b. Right Leg: Motor (5-second hold - always test supine) - 0(No drift) 7. Limb Ataxia (finger/nose \T\ heel/wallace - test with eyes open) - 0(Absent) 8. Sensory Loss (pinprick arms/legs/face) - 0(Normal) 9. Best Language: Aphasia (description/naming/reading) - 0(No aphasia) 10. Dysarthria (speech clarity - read or repeat words) - 0(Normal) 11. Extinction and Inattention (visual/tactile/auditory/spatial/personal) - 0(No abnormality) Initials: [facility] Signatures: Dispatcher [employer] [facility] Ina Quinn, RN Mychal Jones MD MD cha Smirch, Shelby RN RN Sri Poole RN RN lp1 Lisa Duran RN jl7 Corrections: (The following items were deleted from the chart) 17:13 16:07 MR STROKE PROTOCOL+MRI.RAD.BRZ ordered. [facility] 17:47 17:46 03/18/2019 17:46 Discharged to Home. Impression: Transient cerebral daily ischemic attack, unspecified; Visual disturbances. Condition is Stable. Forms are Medication Reconciliation Form, Thank You Letter, Antibiotic Education, Prescription Opioid Use. Follow up: Private Physician; When: 2 - 3 days; Reason: Recheck today's complaints, Continuance of care, Re-evaluation by your physician. Problem is new. Symptoms have improved. daily 19:35 17:47 03/18/2019 17:46 Discharged to Home. Impression: Transient cerebral lp1 ischemic attack, unspecified; Visual disturbances. Condition is Stable. Forms are Medication Reconciliation Form, Thank You Letter, Antibiotic Education, Prescription Opioid Use. Follow up: Private Physician; When: 2 - 3 days; Reason: Recheck today's complaints, Continuance of care, Re-evaluation by your physician. Follow up: Jamie Lim; When: 2 - 3 days; Reason: Recheck today's complaints, Continuance of care, Re-evaluation by your physician. Follow up: Michael Geiger; When: 2 - 3 days; Reason: Recheck today's complaints, Continuance of care, Re-evaluation by your physician. Problem is new. Symptoms have improved. daily
--- NOTE | 2019-03-18 17:55 | RAD REPORT ---
EXAM DESCRIPTION: US - CP - 03/18/2019 5:40 pm CLINICAL HISTORY: TIA, visual disturbances COMPARISON: Carotid ultrasound November 2016 TECHNIQUE: Real-time sonographic evaluation of both carotid systems was performed. Andres scale and Do ppler interrogation were performed with waveform tracing bilaterally. FINDINGS: Normal high resistance waveforms are noted in both external carotid arteries. The common c arotid arteries and internal carotid arteries show normal low resistance waveforms. No significant plaque formation is seen. Peak systolic and end diastolic velocity values and the ICA/ CCA ratios are in the non-hemodynamically significant range. Antegrade flow seen in both vertebral arteries. Velocity values and ratios were recorded and are retained in the patient's imaging records. IMPRESSION: No significant atherosclerotic changes noted. No evidence of a hemodynamically significant stenosis.
[2019-03-18] MEDS ORDERED: ASPIRIN 81 MG CHEWABLE TABLET ONE (18:03)
[2019-03-18 18:19] LABS: Urine Blood NEGATIVE (NEG); Urine Glucose NEGATIVE (NEG); Urine Protein NEGATIVE (NEG)
== END 2019-03-18 19:35 | disposition home or self-care (01) ==
LOC: ER 15:26
DX: G45.9 Transient cerebral ischemic attack, unspecified (principal); I10 Essential (primary) hypertension; Z88.1 Allergy status to other antibiotic agents; Z88.2 Allergy status to sulfonamides; Z88.3 Allergy status to other anti-infective agents; Z88.5 Allergy status to narcotic agent; Z88.8 Allergy status to other drugs, medicaments and biological substances
CPT/HCPCS: 96365; 93005; 87088; 85025; 87086; 80048; 36415; 85610; 85730; 81003; 70450; 70496; 93880; 70551; 99285; 96366; Q9967; J7030

== ENCOUNTER 2020-04-07 18:13 | Emergency (ER) | payer OTHER, MEDICARE ==
[2020-04-07 18:51] LABS: Absolute Lymphocytes (CBC) 3.4 K/uL (0.7-4.9); Basophils % 1.1 % (0-1.3); Hematocrit 42.2 % (36.0-45.0); Lymphocytes % 37.6 % (15.3-44.8); MPV 8.3 fL (7.6-11.3)
[2020-04-07] MEDS ORDERED: LIDOCAINE 1% 20 ML MDV ONE (19:04)
[2020-04-07 19:05] LABS: Potassium 4.1 mmol/L (3.5-5.1)
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
[2020-04-07] MEDS ORDERED: CEPHALEXIN 250 MG CAP ONE (21:21)
[2020-04-07 21:58] VITALS: TEMP 98.3; O2SAT 99
[2020-04-07 22:01] VITALS: BP 136/82
== END 2020-04-07 21:51 | disposition home or self-care (01) ==
LOC: ER 18:13
PROC: 0CQ1XZZ Repair Lower Lip, External Approach (ICD-10-PCS; principal; 2020-04-07)
DX: S01.511A Laceration without foreign body of lip, initial encounter (principal); V49.40XA Driver injured in collision with unspecified motor vehicles in traffic accident, initial encounter; I10 Essential (primary) hypertension; E78.00 Pure hypercholesterolemia, unspecified; Z79.82 Long term (current) use of aspirin; Z88.1 Allergy status to other antibiotic agents; Z88.2 Allergy status to sulfonamides; Z88.3 Allergy status to other anti-infective agents; Z88.5 Allergy status to narcotic agent; Z88.8 Allergy status to other drugs, medicaments and biological substances
CPT/HCPCS: 36415; 70450; 71250; 72125; 80048; 82565; 85025; 86850; 86900; 86901

== ENCOUNTER 2020-08-11 19:02 | Emergency (ER) | payer MEDICARE ==
[2020-08-11 23:08] LABS: Absolute Lymphocytes (CBC) 3.8 K/uL (0.7-4.9); Basophils % 0.7 % (0-1.3); Hematocrit 41.7 % (36.0-45.0); MPV 8.5 fL (7.6-11.3); RBC Red Blood Cell Count 4.45 M/uL (3.86-4.86)
[2020-08-11 23:26] LABS: ALT/SGPT 13 U/L (12-78); AST/SGOT 22 U/L (15-37); Albumin 3.7 g/dL (3.4-5.0); Alkaline Phosphatase 57 U/L (45-117); BUN Blood Urea Nitrogen 28 mg/dL (7-18); Bicarbonate 28 mmol/L (21-32); Bilirubin Direct < 0.1 mg/dL (0-0.2); Bilirubin Total 0.2 mg/dL (0.2-1.0); Glucose Level 99 mg/dL (74-106); Lipase 228 U/L (73-393); Potassium 3.9 mmol/L (3.5-5.1); Protein, Total 7.6 g/dL (6.4-8.2); Sodium Level 142 mmol/L (136-145)
[2020-08-12 00:34] LABS: Blood Morphology Comment NOT SEEN (NOT SEEN); Platelet Estimate ADEQ
--- NOTE | 2020-08-12 00:34 | ER ---
Nurse's Notes [facility] Name: Margret Farris Age: 75 yrs Sex: Female : 1945 Arrival Date: 08/11/2020 Time: 19:04 Bed 4 Private MD: Lelia Lim C Diagnosis: Generalized abdominal pain;Urinary tract infection, site not specified Presentation: 08/11 19:22 Chief complaint: Patient states: abdominal pain for two to three weeks, gradually rv becoming worst. this morning, i had seven bowel movements, formed stool. burning sensation, on and off, 8/10. with slight nausea but without vomiting. no fever. Coronavirus screen: At this time, the client does not indicate any symptoms associated with coronavirus-19. Ebola Screen: No symptoms or risks identified at this time. Initial Sepsis Screen: Does the patient meet any 2 criteria? No. Patient's initial sepsis screen is negative. Does the patient have a suspected source of infection? No. Patient's initial sepsis screen is negative. Risk Assessment: Do you want to hurt yourself or someone else? Patient reports no desire to harm self or others. Onset of symptoms is unknown. 19:22 Method Of Arrival: Ambulatory rv 19:22 Acuity: SHARON 3 rv Triage Assessment: 19:29 General: Appears comfortable, Behavior is calm, cooperative. Pain: Complains of pain in rv abdomen Pain does not radiate. Pain currently is 0 out of 10 on a pain scale. at worst was 8 out of 10 on a pain scale. Quality of pain is described as burning, Is intermittent. GI: Abdomen is round non-distended, Bowel sounds present X 4 quads. Reports lower abdominal pain, upper abdominal pain, Patient currently denies vomiting. Historical: - Allergies: 19:28 Augmentin; rv 19:28 Bextra; rv 19:28 Codeine; rv 19:28 Ephedrine Analogues; rv 19:28 Ibuprofen; rv 19:28 Prednisone; rv 19:28 Sulfa (Sulfonamide Antibiotics); rv 19:28 TETRACYCLINES; rv - PMHx: 19:28 High Cholesterol; Hypertension; seasonal allergies; TIA; rv - PSHx: 19:28 Tubal ligation; Hysterectomy; rv - Immunization history:: Adult Immunizations up to date. - Social history:: Smoking status: Patient denies any tobacco usage or history of. Screenin:10 Abuse screen: Denies threats or abuse. Nutritional screening: No deficits noted. ea Tuberculosis screening: No symptoms or risk factors identified. Fall Risk IV access (20 points). Assessment: 23:45 Reassessment: Patient and/or family updated on plan of care and expected duration. Pain ea level reassessed. Patient is alert, oriented x 3, equal unlabored respirations, skin warm/dry/pink. Returned from CT. 08/12 00:59 Reassessment: Patient and/or family updated on plan of care and expected duration. Pain ea level reassessed. Patient is alert, oriented x 3, equal unlabored respirations, skin warm/dry/pink. Discharge instruction given to patient, verbalized the understanding of instruction. Pt left ED ambulatory tolerating well. Vital Signs: 08/11 19:22 BP 141 / 97; Pulse 86; Resp 16; Pulse Ox 98% ; Weight 64.86 kg; Pain 0/10; rv 23:11 BP 103 / 64; Pulse 78; Resp 18; Pulse Ox 100% on R/A; ea 08/12 00:40 BP 133 / 72; Pulse 80; Resp 18; Pulse Ox 99% ; ea ED Course: 08/11 19:04 Patient arrived in ED. as 19:05 Lelia Lim MD is Private Physician. as 19: Triage completed. rv 22:05 Yair Owens PA is PHCP. jmm 22:05 Emanuel Rodriguez MD is Attending Physician. jmm 22:38 Johnathan Marlow, SANTO is Primary Nurse. rv 22:45 Inserted saline lock: 20 gauge in right antecubital area, using aseptic technique. rv Blood collected. 22:45 Initial lab(s) drawn, by me, sent to lab. rv 22:58 US Abdomen Limited In Process Unspecified. EDMS 23:10 Patient has correct armband on for positive identification. Bed in low position. Call ea light in reach. Side rails up X2. 23:10 Arm band placed on right wrist. Patient placed in an exam room, on a stretcher, on ea pulse oximetry. 08/12 00:10 CT Abd/Pelvis - IV Contrast Only In Process Unspecified. EDMS 00:34 Jerome Higginbotham MD is Referral Physician. jmm 00:34 Allison Linares MD is Referral Physician. [facility] 00:34 Lucio Parra MD is Referral Physician. [facility] 00:55 No provider procedures requiring assistance completed. IV discontinued, intact, ea bleeding controlled, No redness/swelling at site. Pressure dressing applied. Administered Medications: 00:55 Drug: Pepcid 10 mg Route: PO; ea 01:01 Follow up: Response: Medication administered at discharge. ea Outcome: 00:34 Discharge ordered by . [facility] 01:00 Discharged to home ambulatory. ea 01:00 Condition: stable 01:00 Discharge instructions given to patient, Instructed on discharge instructions, follow up and referral plans. medication usage, Demonstrated understanding of instructions, follow-up care, medications, Prescriptions given X 1. 01:01 Patient left the ED. ea Signatures: Dispatcher [employer] EDMS Yair Owens PA PA jmm Martinez, Amelia as Antunez, Elena, RN RN Johnathan Aceves RN RN rv
--- NOTE | 2020-08-12 00:34 | EDPHYS ---
Physician Documentation [facility] [place], [place] Name: Margret Farris Age: 75 yrs Sex: Female : 1945 Arrival Date: 08/11/2020 Time: 19:04 Bed 4 Private MD: Lelia Lim C ED Physician Emanuel Rodriguez HPI: 08/11 22:28 This 75 yrs old Female presents to ER via Ambulatory with complaints of m Abdominal Pain. 22:28 The patient presents with abdominal pain. Onset: The symptoms/episode began/occurred jm gradually, 1.5 year(s) ago. The symptoms do not radiate. Associated signs and symptoms: Pertinent positives: constipation. This is a 75 year old female with a history of hlp, htn that presents to the ED with complaints of intermittent abdominal pain beginning in 2018. Patient states pain is normally relieved with BM. Patient states she awoke this morning at 0400 with abdominal pain. Patients states she had 7 bowel movements which relieved the pain. Denies vomiting. Pain is mainly at the lower abdomen. . Historical: - Allergies: 19:28 Augmentin; rv 19:28 Bextra; rv 19:28 Codeine; rv 19:28 Ephedrine Analogues; rv 19:28 Ibuprofen; rv 19:28 Prednisone; rv 19:28 Sulfa (Sulfonamide Antibiotics); rv 19:28 TETRACYCLINES; rv - PMHx: 19:28 High Cholesterol; Hypertension; seasonal allergies; TIA; rv - PSHx: 19:28 Tubal ligation; Hysterectomy; rv - Immunization history:: Adult Immunizations up to date. - Social history:: Smoking status: Patient denies any tobacco usage or history of. ROS: 22:28 Constitutional: Negative for fever, chills, and weight loss, Cardiovascular: Negative jmm for chest pain, palpitations, and edema, Respiratory: Negative for shortness of breath, cough, wheezing, and pleuritic chest pain. 22:28 Abdomen/GI: Positive for abdominal pain. 22:28 All other systems are negative. Exam: 22:28 Constitutional: This is a well developed, well nourished patient who is awake, alert, jmm and in no acute distress. Head/Face: atraumatic. Eyes: EOMI, no conjunctival erythema appreciated ENT: Moist Mucus Membranes Neck: Trachea midline, Supple Chest/axilla: Normal chest wall appearance and motion. Cardiovascular: Regular rate and rhythm. No edema appreciated Respiratory: Normal respirations, no respiratory distress appreciated Abdomen/GI: Non distended, soft Back: Normal ROM Skin: General appearance color normal MS/ Extremity: Moves all extremities, no obvious deformities appreciated, no edema noted to the lower extremities Neuro: Awake and alert, normal gait Psych: Behavior is normal, Mood is normal, Patient is cooperative and pleasant Vital Signs: 19:22 BP 141 / 97; Pulse 86; Resp 16; Pulse Ox 98% ; Weight 64.86 kg; Pain 0/10; rv 23:11 BP 103 / 64; Pulse 78; Resp 18; Pulse Ox 100% on R/A; ea 08/12 00:40 BP 133 / 72; Pulse 80; Resp 18; Pulse Ox 99% ; ea MDM: 08/11 22:16 Patient medically screened. [facility] 08/12 00:32 Data reviewed: vital signs, nurses notes. Counseling: I had a detailed discussion with [facility] the patient and/or guardian regarding: the historical points, exam findings, and any diagnostic results supporting the discharge/admit diagnosis, lab results, radiology results, the need for outpatient follow up, to return to the emergency department if symptoms worsen or persist or if there are any questions or concerns that arise at home. ED course: Patient is alert and non toxic in appearance in the ED. CT negative for an acute process. Patient is advised to follow up with GI for further evaluation. Patient understood and agrees with the plan of care. . 08/11 22:25 Order name: Basic Metabolic Panel; Complete Time: 23:31 [facility] 08/11 22:25 Order name: CBC with Diff [facility] 08/11 22:25 Order name: Hepatic Function; Complete Time: 23:31 [facility] 08/11 22:25 Order name: Lipase; Complete Time: 23:31 [facility] 08/11 23:06 Order name: Urine Culture [facility] 08/11 23:10 Order name: Manual Differential [facility] 08/11 22:25 Order name: IV Saline Lock; Complete Time: 23:10 [facility] 08/11 22:25 Order name: Labs collected and sent; Complete Time: 23:10 [facility] 08/11 22:25 Order name: CT Abd/Pelvis - IV Contrast Only [facility] 08/11 22:27 Order name: Urine Dipstick-Ancillary (obtain specimen); Complete Time: 23:10 [facility] 08/11 22:41 Order name: US Abdomen Limited [facility] 08/12 00:45 Order name: Urine Dipstick--Ancillary (enter results) tt3 Administered Medications: 00:55 Drug: Pepcid 10 mg Route: PO; ea 01:01 Follow up: Response: Medication administered at discharge. Disposition: 01:44 Co-signature as Attending Physician, Emanuel Rodriguez MD. rn Disposition: 08/12/20 00:34 Discharged to Home. Impression: Generalized abdominal pain, Urinary tract infection, site not specified. - Condition is Stable. - Discharge Instructions: Abdominal Pain, Adult, Urinary Tract Infection, Adult. - Prescriptions for Macrobid 100 mg Oral Capsule - take 1 capsule by ORAL route every 12 hours for 7 days; 14 capsule. - Medication Reconciliation Form, Thank You Letter, Antibiotic Education, Prescription Opioid Use form. - Follow up: Jerome Higginbotham MD; When: 2 - 3 days; Reason: Recheck today's complaints, Continuance of care, Re-evaluation by your physician. Follow up: Allison Linares MD; When: 2 - 3 days; Reason: Recheck today's complaints, Continuance of care, Re-evaluation by your physician. Follow up: Lucio Parra MD; When: 2 - 3 days; Reason: Recheck today's complaints, Continuance of care, Re-evaluation by your physician. Signatures: Dispatcher [employer] EDMS Yair Owens PA PA [facility] Emanuel Rodriguez MD MD rn Antunez, Elena, RN RN ea Vicente, Ronaldo, RN RN rv Corrections: (The following items were deleted from the chart) 00:34 00:34 08/12/2020 00:34 Discharged to Home. Impression: Generalized abdominal pain. [facility] Condition is Stable. Forms are Medication Reconciliation Form, Thank You Letter, Antibiotic Education, Prescription Opioid Use. Follow up: Jerome Higginbotham; When: 2 - 3 days; Reason: Recheck today's complaints, Continuance of care, Re-evaluation by your physician. Follow up: Allison Linares; When: 2 - 3 days; Reason: Recheck today's complaints, Continuance of care, Re-evaluation by your physician. Follow up: Lucio Parra; When: 2 - 3 days; Reason: Recheck today's complaints, Continuance of care, Re-evaluation by your physician. feliz 01:01 00:34 08/12/2020 00:34 Discharged to Home. Impression: Generalized abdominal pain; ea Urinary tract infection, site not specified. Condition is Stable. Forms are Medication Reconciliation Form, Thank You Letter, Antibiotic Education, Prescription Opioid Use. Follow up: Jerome Higginbotham; When: 2 - 3 days; Reason: Recheck today's complaints, Continuance of care, Re-evaluation by your physician. Follow up: Allison Linares; When: 2 - 3 days; Reason: Recheck today's complaints, Continuance of care, Re-evaluation by your physician. Follow up: Lucio Parra; When: 2 - 3 days; Reason: Recheck today's complaints, Continuance of care, Re-evaluation by your physician. feliz
[2020-08-12] MEDS ORDERED: FAMOTIDINE 20 MG TAB ONE (01:07)
[2020-08-12 01:17] VITALS: BP 133/72; O2SAT 99
[2020-08-12 03:04] LABS: Urine Blood NEGATIVE (NEG); Urine Glucose NEGATIVE (NEG); Urine Protein NEGATIVE (NEG)
--- NOTE | 2020-08-12 07:06 | RAD REPORT ---
EXAM DESCRIPTION: US - Abdomen Exam Limited - 08/11/2020 10:58 pm CLINICAL HISTORY: Abdominal pain. COMPARISON: CT abdomen August 11, 2020 FINDINGS: Multiple gallstones. And conjunction with the CT scan on the same date there is borderline dilatation of the common duct. Gallbladder wall is not thickened IMPRESSION: Cholelithiasis Borderline dilatation of the common duct
--- NOTE | 2020-08-12 11:51 | RAD REPORT ---
EXAM DESCRIPTION: CT - Abdomen Pelvis W Contrast - 08/12/2020 6:21 am CLINICAL HISTORY: The patient is 75 years old and is Female; abdominal pain TECHNIQUE: Axial computed tomography images of the abdomen and pelvis with intravenous contrast. S agittal and coronal reformatted images were created and reviewed. This CT exam was performed using one or more of the following dose reduction techniques: automated exposure control, adjustment of t he mA and/or kV according to patient size, and/or use of iterative reconstruction technique. COMPARISON: CT April 07, 2020. FINDINGS: LUNG BASES: Unremarkable. No mass. No consolidation. ABDOMEN: LIVER: Unremarkable. No mass. GALLBLADDER AND BILE DUCTS: The gallbladder is contracted. PANCREAS: No ductal dilation. No mass. SPLEEN: Several splenic granuloma are present. ADRENALS: Unremarkable. No mass. KIDNEYS AND URETERS: Unremarkable. The kidneys enhance symmetrically. No obstructing renal or ur eteral calculus is seen. No hydronephrosis or hydroureter. No perinephric fluid or stranding. STOMACH AND BOWEL: The stomach is distended with fluid and food contents. The small bowel is rel atively normal in caliber. A moderate amount of stool is present throughout colon. Scattered colonic diverticula are noted without surrounding inflammation. PELVIS: APPENDIX: The appendix is normal in caliber without surrounding inflammation. BLADDER: Unremarkable. No mass. REPRODUCTIVE: The patient is status post hysterectomy. ABDOMEN and PELVIS: INTRAPERITONEAL SPACE: Unremarkable. No free air. No significant fluid collection. BONES/JOINTS: Multilevel degenerative change of the spine is present. SOFT TISSUES: The soft tissues are normal. VASCULATURE: Atherosclerosis of the vasculature is present. The vessels are normal in caliber. No abdominal aortic aneurysm. LYMPH NODES: Unremarkable. No enlarged lymph nodes. IMPRESSION: Colonic diverticulosis. Electronically signed by: Holly Bourgeois MD 08/12/2020 12:14 AM INTEGRATED CIRCUITS INSPECTOR Due to temporary technical issues with the PACS/Fluency reporting system, reports are being signed by the in house radiologist without review as a courtesy to ensure prompt reporting. The interpreting r adiologist is fully responsible for the content of the report.
== END 2020-08-12 01:01 | disposition home or self-care (01) ==
LOC: ER 19:02
DX: N39.0 Urinary tract infection, site not specified (principal); R10.84 Generalized abdominal pain; E78.00 Pure hypercholesterolemia, unspecified; I10 Essential (primary) hypertension; Z86.73 Personal history of transient ischemic attack (TIA), and cerebral infarction without residual deficits; K59.00 Constipation, unspecified
CPT/HCPCS: 87088; 85025; 87086; 80048; 36415; 80076; 81003; 83690; 74177; 76705; 99284; Q9967

== ENCOUNTER 2021-09-03 15:16 | Inpatient (IN) | payer OTHER ==
[2021-09-03] MEDS ORDERED: ONDANSETRON 4 MG/2 ML VIAL ONE (16:23)
[2021-09-03] MEDS ORDERED: FENTANYL CITR 100 MCG/2 ML ONE (16:23)
[2021-09-03 16:59] LABS: Absolute Lymphocytes (CBC) 2.5 K/uL (0.7-4.9); Hematocrit 41.5 % (36.0-45.0); MPV 8.5 fL (7.6-11.3); RBC Red Blood Cell Count 4.49 M/uL (3.86-4.86)
[2021-09-03 17:13] LABS: Albumin 3.7 g/dL (3.4-5.0); Bilirubin Direct 0.7 mg/dL (0-0.2); Bilirubin Total 1.1 mg/dL (0.2-1.0); Potassium 3.6 mmol/L (3.5-5.1); Protein, Total 7.8 g/dL (6.4-8.2)
--- NOTE | 2021-09-03 17:18 | RAD REPORT ---
EXAM DESCRIPTION: CT - Abdomen Pelvis W Contrast - 09/03/2021 5:03 pm CLINICAL HISTORY: ABD PAIN COMPARISON: Abdomen Pelvis W Contrast dated 08/11/2020 TECHNIQUE: Biphasic, helical CT imaging of the abdomen and pelvis was performed following 100 ml non -ionic IV contrast. No oral contrast administered. All CT scans are performed using dose optimization technique as appropriate and may include automated exposure control or mA/KV adjustment according to patient size. FINDINGS: No suspicious findings in the lung bases. The liver, spleen, and pancreas show no suspicious findings. Liver shows diffuse fatty infiltration. Gallbladder size is normal without acute finding seen. Extrahepatic biliary tree is prominent but not different from prior imaging. Symmetric renal function is seen with no hydronephrosis or suspicious renal mass. No pyelonephritis o r acute parenchymal process. No bladder abnormalities. No adrenal abnormalities. Uterus is absent. Ov armin are absent or atrophic. No adnexal abnormality. Fluid distends but does not dilate the stomach. No gastric wall thickening. No antrum, pylorus or duo denal wall thickening or mass. Outlet obstruction is not seen. Small bowel loops are not dilated. No appendicitis findings. Diverticulosis of the sigmoid colon present without diverticulitis findings. N o active colon process seen. No free air, free fluid or inflammatory stranding. No hernia, mass or bulky lymphadenopathy. No suspicious bony findings. Disc and bone degenerative changes are present without acute finding see n. No acute vascular finding. IMPRESSION: Fluid distended stomach without gastric wall thickening. No outlet obstruction or duoden al abnormality. Findings could reflect a nonspecific gastroenteritis. Moderate sigmoid diverticulosis without diverticulitis findings.
[2021-09-03 17:45] LABS: SARS-COV-2 RT PCR NEGATIVE (NEGATIVE)
--- NOTE | 2021-09-03 18:44 | EDPHYS ---
Physician Documentation [facility] Name: Margret Farris Age: 76 yrs Sex: Female : 1945 Arrival Date: 09/03/2021 Time: 15:20 Bed 18 Private MD: Lelia Lim C ED Physician Emanuel Rodriguez HPI: 09/03 15:56 This 76 yrs old Female presents to ER via Ambulatory with complaints of Abdominal Pain. pm1 15:56 The patient presents with abdominal pain in the epigastric area. pm1 15:56 Onset: The symptoms/episode began/occurred yesterday. The symptoms radiate to right pm1 back. 15:56 Associated signs and symptoms: Pertinent positives: diarrhea, Pertinent negatives: pm1 nausea and vomiting, chest pain, shortness of breath. The symptoms are described as achy, constant. Modifying factors: The symptoms are alleviated by nothing, the symptoms are aggravated by nothing. Severity of pain: in the emergency department the pain is actually worse. The patient has not experienced similar symptoms in the past. The patient has not recently seen a physician. Historical: - Allergies: 15:29 Augmentin; ab2 15:29 Codeine; ab2 15:29 Ibuprofen; ab2 15:29 Prednisone; ab2 15:29 Sulfa (Sulfonamide Antibiotics); ab2 15:29 TETRACYCLINES; ab2 15:29 Ephedrine Analogues; ab2 15:29 Bextra; ab2 - PMHx: 15:29 High Cholesterol; Hypertension; seasonal allergies; TIA; ab2 - Immunization history:: Adult Immunizations up to date, Client reports receiving the 2nd dose of the Covid vaccine, Flu vaccine is not up to date. - Social history:: Smoking status: Patient denies any tobacco usage or history of. ROS: 15:56 Constitutional: Negative for fever, chills, and weight loss, Cardiovascular: Negative pm1 for chest pain, palpitations, and edema, Respiratory: Negative for shortness of breath, cough, wheezing, and pleuritic chest pain. 15:56 : Negative for injury, bleeding, discharge, and swelling, MS/Extremity: Negative for injury and deformity, Skin: Negative for injury, rash, and discoloration, Neuro: Negative for headache, weakness, numbness, tingling, and seizure. 15:56 Abdomen/GI: Positive for abdominal pain, diarrhea, of the epigastric area, Negative for nausea and vomiting. 15:56 Back: Positive for flank pain, on the right. 15:56 All other systems are negative. Exam: 15:56 Constitutional: This is a well developed, well nourished patient who is awake, alert, pm1 and in no acute distress. Head/Face: Normocephalic, atraumatic. 15:56 Skin: Warm, dry with normal turgor. Normal color with no rashes, no lesions, and no evidence of cellulitis. MS/ Extremity: Pulses equal, no cyanosis. Neurovascular intact. Full, normal range of motion. 15:56 Eyes: Exam is negative for acute changes, Extraocular movements: no acute changes, Conjunctiva: no acute changes, no injection. 15:56 ENT: Exam is negative for acute changes, Mouth: no acute changes, Lips: normal, moist, Oral mucosa: normal, pink and intact, moist. 15:56 Cardiovascular: Exam negative for acute changes, Rate: normal, Rhythm: regular, Pulses: no pulse deficits are appreciated. 15:56 Respiratory: Exam negative for acute changes, respiratory distress, shortness of breath, Breath sounds: are clear throughout. 15:56 Abdomen/GI: Inspection: obese Palpation: soft, in all quadrants, moderate abdominal tenderness, in the epigastric area. 15:56 Back: pain, that is mild, of the right mid back, vertebral tenderness, is not appreciated. 15:56 Neuro: Exam negative for acute changes, Orientation: is normal, Mentation: is normal, Motor: is normal, moves all fours. Vital Signs: 15:26 BP 132 / 76; Pulse 58; Resp 18; Temp 97.8; Pulse Ox 100% on R/A; Weight 68.04 kg; ab2 Height 5 ft. 0 in. (152.40 cm); Pain 10/10; 16:30 BP 134 / 89; Pulse 75; Resp 16; Pulse Ox 99% ; bp 17:30 BP 124 / 65; Pulse 72; Resp 16; Pulse Ox 100% ; bp 18:30 BP 128 / 79; Pulse 84; Resp 17; Pulse Ox 100% ; bp 15:26 Body Mass Index 29.29 (68.04 kg, 152.40 cm) ab2 MDM: 16:03 Patient medically screened. pm1 17:20 Data reviewed: vital signs. Data interpreted: Pulse oximetry: on room air is 100 %. pm1 Interpretation: normal. 18:00 Counseling: I had a detailed discussion with the patient and/or guardian regarding: the pm1 historical points, exam findings, and any diagnostic results supporting the discharge/admit diagnosis, lab results, radiology results, the need for outpatient follow up, to return to the emergency department if symptoms worsen or persist or if there are any questions or concerns that arise at home. 18:31 Physician consultation: Lucio Parra MD regarding consult, patient's condition, and pm1 will see patient tomorrow. 18:39 Physician consultation: Lelia Lim MD regarding admission, patient's condition, and will pm1 see patient consultation with Dr. Parra and Dr. Perez, Yesenia, and ABBettina. Initially I planned for Zosyn but patient with rash and swelling to face with Augmentin. Will give Cipro and Flagyl instead. 18:55 Physician consultation: Terry Perez MD regarding consult, patient's condition, and pm1 will see patient tomorrow. 09/03 15:56 Order name: Basic Metabolic Panel; Complete Time: 17:15 pm1 09/03 15:56 Order name: CBC with Diff; Complete Time: 17:15 pm1 09/03 15:56 Order name: Hepatic Function; Complete Time: 17:15 pm1 09/03 15:56 Order name: Lipase; Complete Time: 17:15 pm1 09/03 15:56 Order name: COVID-19/FLU A+B (Document "Date of Onset" if Symptomatic); Complete Time: pm1 17:49 09/03 20:58 Order name: CREATININE WHOLE BLOOD; Complete Time: 14:42 EDMS 09/03 15:56 Order name: IV Saline Lock; Complete Time: 16:46 pm1 09/03 15:56 Order name: CT Abd/Pelvis - IV Contrast Only; Complete Time: 17:21 pm1 09/03 17:17 Order name: US Abdomen Limited; Complete Time: 14:42 pm1 09/03 15:56 Order name: Labs collected and sent; Complete Time: 16:46 pm1 09/03 18:45 Order name: NPO; Complete Time: 18:45 pm1 Administered Medications: 16:35 Drug: fentaNYL (PF) 25 mcg Route: IVP; Site: right forearm; bp 18:45 Follow up: Response: Pain is decreased bp 16:35 Drug: Zofran (Ondansetron) 4 mg Route: IVP; Site: right forearm; bp 18:45 Follow up: Response: Nausea is decreased bp 19:11 Drug: Pepcid (famotidine) 20 mg Route: IVP; Site: right wrist; sm5 19:12 Drug: Flagyl (metroNIDAZOLE) 500 mg Volume: 100 ml; Route: IVPB; Rate: 200 ml/hr; sm5 Infused Over: 30 mins; Site: right wrist; 20:43 Drug: Cipro (ciprofloxacin) 400 mg Volume: 200 ml; Route: IVPB; Infused Over: 60 mins; sm5 Site: right wrist; Disposition: 09/04 07:17 Co-signature as Attending Physician, Emanuel Rodriguez MD I agree with the assessment and rn plan of care. Attestation: The patient's history, exam findings, diagnostics, and a summary of any interventions or procedures was reviewed in detail with Alexandru Lucas NP. Disposition Summary: 09/03/21 18:43 Hospitalization Ordered Hospitalization Status: Inpatient Admission pm1 Provider: Lelia Lim pmDenise Location: Telemetry/[facility] (Inpatient) pm1 Condition: Stable pm1 Problem: new pm1 Symptoms: have improved pm1 Bed/Room Type: Standard pm1 Room Assignment: 222(09/03/21 19:55) Diagnosis - Cholelithiasis with pancreatitis pm1 Forms: - Medication Reconciliation Form pm1 - SBAR form pm1 Signatures: Dispatcher [employer] EDEmanuel Branham MD MD rn Garcia, Cindy, RN RN cg Marinas, Patrick, NP [employer]CH[employer] SALES AGENT pm1 Fadi Membreno RN RN bp Mazur, Sarah, RN RN sm5 Bleininger, Alexis ab2 Corrections: (The following items were deleted from the chart) 09/03 19:55 18:43 pm1 cg
--- NOTE | 2021-09-03 18:44 | ER ---
Nurse's Notes [facility] Name: Margret Farris Age: 76 yrs Sex: Female : 1945 Arrival Date: 09/03/2021 Time: 15:20 Bed 18 Private MD: Lelia Lim C Diagnosis: Cholelithiasis with pancreatitis Presentation: 09/03 15:26 Chief complaint: Patient states: "I am having upper abdominal pain and abdominal ab2 swelling." Pt denies n/v but is having diarrhea. Coronavirus screen: Vaccine status: Patient reports receiving the 2nd dose of the covid vaccine. Client denies travel out of the [place] in the last 14 days. At this time, the client does not indicate any symptoms associated with coronavirus-19. Ebola Screen: Patient negative for fever greater than or equal to 101.5 degrees Fahrenheit, and additional compatible Ebola Virus Disease symptoms Patient denies exposure to infectious person. Patient denies travel to an Ebola-affected area in the 21 days before illness onset. No symptoms or risks identified at this time. Initial Sepsis Screen: Does the patient meet any 2 criteria? No. Patient's initial sepsis screen is negative. Does the patient have a suspected source of infection? No. Patient's initial sepsis screen is negative. Risk Assessment: Do you want to hurt yourself or someone else? Patient reports no desire to harm self or others. Onset of symptoms is unknown. 15:26 Method Of Arrival: Ambulatory ab2 15:26 Acuity: SHARON 3 ab2 Triage Assessment: 15:31 General: Appears in no apparent distress. comfortable, Behavior is calm, cooperative, ab2 appropriate for age. Pain: Complains of pain in right upper quadrant and left upper quadrant. GI: Reports upper abdominal pain, diarrhea, nausea. Historical: - Allergies: 15:29 Augmentin; ab2 15:29 Codeine; ab2 15:29 Ibuprofen; ab2 15:29 Prednisone; ab2 15:29 Sulfa (Sulfonamide Antibiotics); ab2 15:29 TETRACYCLINES; ab2 15:29 Ephedrine Analogues; ab2 15:29 Bextra; ab2 - PMHx: 15:29 High Cholesterol; Hypertension; seasonal allergies; TIA; ab2 - Immunization history:: Adult Immunizations up to date, Client reports receiving the 2nd dose of the Covid vaccine, Flu vaccine is not up to date. - Social history:: Smoking status: Patient denies any tobacco usage or history of. Screenin:30 Abuse screen: Denies threats or abuse. Denies injuries from another. Nutritional bp screening: No deficits noted. Tuberculosis screening: No symptoms or risk factors identified. Fall Risk None identified. Assessment: 15:30 General: SEE TRIAGE NOTE. bp 17:00 Reassessment: No changes from previously documented assessment. Patient and/or family bp updated on plan of care and expected duration. Pain level reassessed. 18:00 Reassessment: No changes from previously documented assessment. Patient and/or family bp updated on plan of care and expected duration. Pain level reassessed. U/S COMPLETE. 21:36 GI: Bowel sounds present X 4 quads. Abd is soft. sm5 Vital Signs: 15:26 BP 132 / 76; Pulse 58; Resp 18; Temp 97.8; Pulse Ox 100% on R/A; Weight 68.04 kg; ab2 Height 5 ft. 0 in. (152.40 cm); Pain 10/10; 16:30 BP 134 / 89; Pulse 75; Resp 16; Pulse Ox 99% ; bp 17:30 BP 124 / 65; Pulse 72; Resp 16; Pulse Ox 100% ; bp 18:30 BP 128 / 79; Pulse 84; Resp 17; Pulse Ox 100% ; bp 15:26 Body Mass Index 29.29 (68.04 kg, 152.40 cm) ab2 ED Course: 15:20 Patient arrived in ED. mr 15:20 Lelia Lim MD is Private Physician. mr 15:29 Triage completed. ab2 15:30 Arm band placed on left wrist. ab2 15:30 Patient has correct armband on for positive identification. Bed in low position. Call bp light in reach. Side rails up X2. 15:32 Fadi Membreno, SANTO is Primary Nurse. bp 15:55 Alexandru Lucas NP is PHCP. pm1 15:55 Emanuel Rodriguez MD is Attending Physician. pm1 16:40 Inserted saline lock: 22 gauge in right forearm, using aseptic technique. Blood bp collected. 17:03 CT Abd/Pelvis - IV Contrast Only In Process Unspecified. EDMS 18:15 US Abdomen Limited In Process Unspecified. EDMS 18:42 Lelia Lim MD is Hospitalizing Provider. pm1 21:36 No provider procedures requiring assistance completed. Patient admitted, IV remains in sm5 place. Administered Medications: 16:35 Drug: fentaNYL (PF) 25 mcg Route: IVP; Site: right forearm; bp 18:45 Follow up: Response: Pain is decreased bp 16:35 Drug: Zofran (Ondansetron) 4 mg Route: IVP; Site: right forearm; bp 18:45 Follow up: Response: Nausea is decreased bp 19:11 Drug: Pepcid (famotidine) 20 mg Route: IVP; Site: right wrist; sm5 19:12 Drug: Flagyl (metroNIDAZOLE) 500 mg Volume: 100 ml; Route: IVPB; Rate: 200 ml/hr; sm5 Infused Over: 30 mins; Site: right wrist; 20:43 Drug: Cipro (ciprofloxacin) 400 mg Volume: 200 ml; Route: IVPB; Infused Over: 60 mins; sm5 Site: right wrist; Outcome: 18:43 Decision to Hospitalize by Provider. pm1 21:36 Admitted to Med/surg accompanied by nurse, via wheelchair, with chart. 5 21:36 Condition: stable 21:36 Instructed on the need for admit. 21:37 Patient left the ED. [facility] Signatures: Dispatcher [employer] EDMS Ketty Alonzo Patrick, DEBURRING TECHNICIAN DEBURRING TECHNICIAN pm1 Fadi Membreno, RN RN Rachel Kim RN RN 5 Tal Tavares
[2021-09-03] MEDS ORDERED: CIPROFLOXACIN 400mg IV 400 MG/200 ML BAG IV ONE (19:01)
[2021-09-03] MEDS ORDERED: FAMOTIDINE 20 MG/2 ML VIAL IV ONE (19:01)
[2021-09-03] MEDS ORDERED: METRONIDAZOLE 500mg IVPB 500 MG/100 ML BAG IV ONE (19:01)
--- NOTE | 2021-09-03 19:39 | RAD REPORT ---
EXAM DESCRIPTION: US - Abdomen Exam Limited - 09/03/2021 6:15 pm CLINICAL HISTORY: EPIGASTRIC PAIN COMPARISON: Abdomen Pelvis W Contrast dated 09/03/2021; Abdomen Pelvis W Contrast dated 08/11/2020 FINDINGS: Gallbladder size normal. No wall thickening or pericholecystic fluid seen several small muir bcentimeter mobile gallstones are identified. Additional stone near the neck may be as large is 12 mm . No measurable quantity of sludge. No duct stones identified. Common bile duct is prominent but not outside of normal range. Earlier CT study showed prominent biliary tree stable from examination 1 year earlier. IMPRESSION: Cholelithiasis without sonographic findings of cholecystitis. Prominent common bile duct without duct stone identifiable.
[2021-09-03] MEDS ORDERED: ONDANSETRON 4 MG/2 ML VIAL IV PRN (19:45)
[2021-09-03] MEDS ORDERED: FENTANYL CITR 100 MCG/2 ML IV PRN (19:45)
[2021-09-03] MEDS: FAMOTIDINE 20 MG/2 ML VIAL IV SCH (19:47)
[2021-09-03] MEDS ORDERED: CIPROFLOXACIN 400mg IV 400 MG/200 ML BAG IV SCH (21:00)
[2021-09-03] MEDS ORDERED: DIPHENHYDRAMINE 50 MG/ML VIAL ONE (21:28)
[2021-09-03] MEDS ORDERED: CEFTRIAXONE 1000 MG/VIAL ONE (21:40)
[2021-09-03] MEDS ORDERED: NA CHLORIDE 0.9% 0 ML ONE (21:46)
[2021-09-03 22:19] VITALS: BMI 27.1
[2021-09-03] MEDS: D5 0.45 NS 1,000 ML IV SCH (22:36)
[2021-09-03] MEDS: CEFTRIAXONE 1,000 MG in NA CHLORIDE 0.9% 50 ML IVPB SCH (22:38)
[2021-09-03] MEDS: DIPHENHYDRAMINE 50 MG/ML VIAL IV PRN (23:31)
[2021-09-04] MEDS: METRONIDAZOLE 500mg IVPB 500 MG/100 ML BAG IV SCH ×2 (00:08→09:00)
[2021-09-04 05:50] LABS: Absolute Lymphocytes (CBC) 2.1 K/uL (0.7-4.9); Lymphocytes % 33.9 % (15.3-44.8); MPV 8.2 fL (7.6-11.3); RBC Red Blood Cell Count 3.86 M/uL (3.86-4.86)
[2021-09-04 06:04] LABS: Albumin 2.7 g/dL (3.4-5.0); Bilirubin Direct 0.2 mg/dL (0-0.2); Bilirubin Total 0.4 mg/dL (0.2-1.0); Potassium 3.7 mmol/L (3.5-5.1); Protein, Total 5.9 g/dL (6.4-8.2)
[2021-09-04] MEDS: FAMOTIDINE 20 MG/2 ML VIAL IV SCH ×2 (08:25→20:26)
[2021-09-04] MEDS: DIPHENHYDRAMINE 50 MG/ML VIAL IV PRN (08:25)
[2021-09-04] MEDS: D5 0.45 NS 1,000 ML IV SCH (08:26)
[2021-09-04] MEDS: CEFTRIAXONE 1,000 MG in NA CHLORIDE 0.9% 50 ML IVPB SCH (09:00)
[2021-09-04] MEDS ORDERED: CEFTRIAXONE 1,000 MG in NA CHLORIDE 0.9% 50 ML IVPB SCH (09:00)
[2021-09-04] MEDS ORDERED: ACETAMINOPHEN 500 MG TAB PO PRN (11:18)
--- NOTE | 2021-09-04 12:12 | P.CNS ---
Date of Consult: 09/04/21 PC: This 76-year-old female presented to the emergency room with severe right upper quadrant abdominal pain for diagnosis and treatment. HPC: Patient recently ate some fajitas. States that shortly thereafter experienced severe right upper quadrant abdominal pain, radiating into her back, that doubles her over. Describes it as being worse than labor pain. PSHx: Denies any prior abdominal surgeries PMHx: History of back pain and scoliosis Social Hx: Numerous allergies to antibiotics, as well as codeine and ephedrine [states she cannot take hydrocodone, and morphine] Sys R: No cough, wheeze, shortness of breath. No chest pain or palpitations. Denies any urinary complaints. 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 O/E: Awake alert comfortable at the HEENT: Nonicteric Chest: Chest movement equal bilaterally Abd: Mild right upper quadrant tenderness Tofte: Intact Data: An elevation of her serum amylase but is coming back down was today. Has documented gallstones. Impression: Acute on chronic cholecystitis with cholelithiasis, biliary colic, gallstone pancreatitis Plan: I will taken the operating room for laparoscopic cholecystectomy with intraoperative cholangiogram. The risks of this procedure have been discussed. The possibility of bleeding, infection, injury to bile ducts blood vessels and intestines has been described. The possible need for an open and/or further surgeries and procedures was discussed. The patient has already received antibiotics, but did have some reactions to each of them. We will leave her current levels of antibiotic to cover her for her surgery. If need be we will add the Bactrim orally. I have discussed the case with Dr. Lim and Dr. Huff. They concur with this course of treatment. Patient understands, and wants to proceed.
[2021-09-04] MEDS ORDERED: propofoL 200 MG/20 ML VIAL IV ONE (12:49)
[2021-09-04] MEDS ORDERED: FENTANYL CITR 100 MCG/2 ML ONE (12:49)
[2021-09-04] MEDS ORDERED: LIDOCAINE 1% MPF 5 ML VIAL ONE (12:50)
[2021-09-04] MEDS ORDERED: MIDAZOLAM HCL 2 MG/2 ML INJ ONE (12:50)
[2021-09-04] MEDS ORDERED: NEOSTIGMINE 1 MG/ML -5 ML ONE (12:50)
[2021-09-04] MEDS ORDERED: KETOROLAC 30 MG/ML INJ ONE (12:51)
[2021-09-04] MEDS ORDERED: GLYCOPYRROLATE 0.2 MG/ML SYR ONE (12:51)
[2021-09-04] MEDS ORDERED: ONDANSETRON 4 MG/2 ML VIAL ONE (12:51)
[2021-09-04] MEDS ORDERED: ROCURONIUM 50 MG/5 ML VIAL IV ONE (12:51)
[2021-09-04] MEDS ORDERED: MORPHINE 10 MG/ML VIAL ONE (12:51)
[2021-09-04] MEDS ORDERED: Ringers Lactate 1,000 ML IV ONE (13:06)
[2021-09-04] MEDS ORDERED: Phenylephrine HCl 10 MG/ML 1 ML VIAL ONE (14:07)
--- NOTE | 2021-09-04 14:42 | P.OP ---
Preoperative diagnosis: Acute on chronic cholecystitis with cholelithiasis, multiple pancreatitis Postoperative diagnosis: The same Primary procedure: Laparoscopic cholecystectomy Secondary procedure: Cholangiogram Other procedure(s): Tap block Anesthesia: General Estimated blood loss: Less than 10 cc Specimen: 1 gallbladder and contents Findings: Normal cholangiogram Operative Technique: Patient brought the operating room and placed supine on the table. After the induction of adequate general endotracheal anesthesia, the area of the abdomen was prepped with a DuraPrep solution, and she was draped in usual aseptic manner. A subumbilical incision was made. This was brought down through the skin and subcutaneous tissue. The Visiport was then used to enter the peritoneal cavity and created pneumoperitoneum to approximately 12 mmHg. Under direct vision a 5 mm trocar was placed in the upper midline, and 2 other 5 mm trochars on the right lateral side of the abdomen. At this point a tap block was done with 0.25% Marcaine. We used approximately 6 cc. Attention was turned towards the gallbladder itself. It was noted to be distended with an acute on chronic inflammation. There were chronic adhesions of the omentum stuck to the serosal surface. These were taken down using judicious electrocautery and mild gentle traction. A grasper was now able to be placed on the body of the gallbladder. Gentle dissection was now done done near Wilson's pouch. Again chronic adhesions were adherent in this area. They were gently dissected using both electrocautery, and mild traction. We were now able to place a grasper on Wilson's pouch. Applying lateral traction we exposed the cystic duct and artery, as well as a enlarged lymph node. Having obtained the critical view, a clip was placed between the gallbladder and the cystic duct. An opening was made into the cystic duct. We were able to cannulate this with the biliary catheter allowing us to do a cholangiogram. On initial injection we can see the extrahepatic biliary tree filled. The balloon was visible in the common bile duct as suspected. Gentle pressure allowed the distal portion of the common bile duct to fill there was a momentary pause and then we could see good flow of contrast into the duodenum itself. There was no evidence of any filling defect. Having obtained a completion cholangiogram, the balloon on the catheter was deflated. We were able to advance the catheter easily into the duodenum. The catheter was now removed. Lips were placed on the distal portion of the cystic duct. The cystic artery was clipped and divided in the usual manner. The gallbladder was now dissected free from the liver bed, placed into an Endo Cat ch, and brought out through the umbilical trocar site. The abdomen was now in perspective to ensure adequate hemostasis. The patient was returned to the neutral position on the OR table. The liver bed had been inspected to ensure adequate hemostasis and the irrigating fluid was aspirated from the peritoneal cavity. Attention was turned out towards the umbilicus. The Endo Close was used to approximate the fascial defect. We placed 2 sutures in this area. The pneumoperitoneum was now collapsed, the trochars removed, and rosalia applied to the skin. At the end of the procedure she was stable was sent to the recovery room. Needle sponge instrument count were correct. No drains were placed. Complications: None Transferred to: Recovery Room Condition: Good
[2021-09-04] MEDS ORDERED: HYDROMORPHONE HCL 1 MG/ML INJ ONE (15:09)
[2021-09-04] MEDS ORDERED: HYDROCODONE/APAP 7.5/325 MG TAB PO PRN (15:17)
[2021-09-04 15:24] VITALS: O2SAT 95
--- NOTE | 2021-09-04 17:26 | RAD REPORT ---
EXAM DESCRIPTION: RADCholangiogram Oper-Xray Or09/04/2021 5:15 pm CLINICAL HISTORY: Abdominal pain FINDINGS: The examination was performed by Dr. Perez. The cystic duct was cannulated and contrast administered. Contrast flowed into the duodenum. Common bile duct is mildly distended. A portion of the pancreatic duct is opacified Fluoroscopy time 0.3 minutes. Two fluoroscopic spot images obtained
[2021-09-04] MEDS: carvediloL 3.125 MG TAB PO SCH (18:07)
[2021-09-05] MEDS: D5 0.45 NS 1,000 ML IV SCH ×2 (01:39→01:45)
[2021-09-05 05:45] LABS: Absolute Lymphocytes (CBC) 3.3 K/uL (0.7-4.9); Hematocrit 36.6 % (36.0-45.0); Lymphocytes % 37.3 % (15.3-44.8); MPV 9.3 fL (7.6-11.3)
[2021-09-05] MEDS: carvediloL 3.125 MG TAB PO SCH (05:54)
[2021-09-05 05:59] LABS: Albumin 2.5 g/dL (3.4-5.0); Bilirubin Total 0.3 mg/dL (0.2-1.0); Protein, Total 5.9 g/dL (6.4-8.2)
[2021-09-05 06:01] LABS: Potassium 3.9 mmol/L (3.5-5.1)
[2021-09-05 06:49] VITALS: TEMP 97.4
[2021-09-05 08:18] VITALS: BP 132/66
[2021-09-05] MEDS: FAMOTIDINE 20 MG/2 ML VIAL IV SCH (08:55)
[2021-09-05 09:31] LABS: Blood Morphology Comment NOTED (NOT SEEN); Platelet Estimate ADEQ; White Blood Cell Scan OK (OK)
[2021-09-05 09:32] LABS: Anisocytosis SLIGHT; Hypochromasia 1+
--- NOTE | 2021-09-05 14:22 | HP ---
Date of Admission: 09/03/2021 Chief Complaint: Abdominal pain. History Of Present Illness: This is a 76-year-old female patient, who started to have epigastric abd ominal pain on Sunday night and this was more or less continuous pain since it started, so yesterday she came into emergency room with this ongoing pain. She had 3 soft bowel movements at home. No vom iting. No fever. No chills. She came into the emergency room. After evaluation, she was admitted to the hospital with gallstones and pancreatitis type of problem. While she was in emergency room, s he was receiving IV Cipro and she started to have some itching around the IV injection site and this was limited to distal forearm region. When nurse contacted me, IV Cipro was discontinued and Benadry l was ordered and different antibiotic which was ceftriaxone was started. Later on during late night while the patient was getting ceftriaxone, she started to have rash and itching over her face, neck and upper chest and at that time nurse contacted me and we discontinued ceftriaxone and Benadryl IV w as ordered. This morning, she overall feels better except she is still continues to have epigastric abdominal pain and on pain scale 0-10, she rates her pain currently at 1/10. Allergies: TO AMOXICILLIN CAUSING RASH, CELEBREX CAUSING TINNITUS, CLINDAMYCIN CAUSING NAUSEA, CODEI NE CAUSING ITCHING, PSEUDOEPHEDRINE CAUSING PALPITATION, SULFA CAUSING LIP TINGLING SENSATION, TETRAC YCLINE CAUSING RASH, XYZAL CAUSING DIZZINESS, AND GABAPENTIN. NEW ALLERGY NOT ADDED TO THIS LIST IS CEFTRIAXONE CAUSING RASH AND ITCHING. I WILL NOT LIST CIPRO ALLERGIC REACTION, BUT MAY BE SIDE-EF FECT TO IV AND THE PATIENT HAS TAKEN ORAL CIPRO WITHOUT ANY SIDE EFFECTS IN THE PAST. Medications: Aspirin 81 mg daily, carvedilol 3.125 mg 2 times a day, famotidine 40 mg daily at bedti il, fenofibrate 48 mg daily, folic acid 1 mg daily, furosemide 40 mg daily as needed for leg swelling , and latanoprost eyedrops. Review of Systems: GI: As mentioned above. All other systems reviewed and negative. Past Medical History: Significant for headache, impaired fasting glucose, hypertension, hyperlipidem ia, gastroesophageal reflux disease, irritable bowel syndrome, diverticulosis, lumbar spondylosis, in somnia, and chronic kidney disease stage 3. Physical Examination: Vital Signs: Temperature 97.3, pulse 68, respiratory rate 16, blood pressure 123/67, oxygen saturati on 96%. Height 5 feet 3 inches, weight 153 pounds. General: Awake, alert, oriented, not in distress. HEENT: Head atraumatic, normocephalic. Conjunctivae nonerythematous. Sclerae white. Mouth, no thr ush or edema noted. Ears/Nose, no mass, lesion, discharge noted. Neck: Supple. No JVD, lymph nodes, bruit, thyromegaly noted. Lungs: Bilateral good equal air entry. Clear to auscultation. No rhonchi. No rales. Heart: Normal heart sounds, no murmur or gallop. Abdomen: Soft. No guarding, rigidity. No distention. No hepatosplenomegaly. No bruit. Bowel christy nds normoactive. The patient has mild epigastric tenderness. No rebound tenderness. Extremities: No leg edema. No calf tenderness. Skin: No rash, ulcer, cellulitis. Lymphatics: No lymph node enlargement in neck, supraclavicular, infraclavicular region. Neuro: No focal neurological deficit. Chest: Unremarkable. External Genitalia: Deferred. Rectal: Deferred. Laboratory Data: Yesterday; white count 9.8, hemoglobin 13.6, platelets 214. This morning; white co unt 6.2, hemoglobin 12, platelets 172. Yesterday; sodium 141, potassium 3.6, chloride 108, bicarb 29 , BUN 27, creatinine 1.31, EGFR 39, glucose 131, total bilirubin 1.1, direct bilirubin 0.7, AST 269, ALT 82, alkaline phosphatase 80, lipase 1143. This morning; sodium 144, potassium 3.7, chloride 113, bicarb 26, BUN 21, creatinine 1.14, glucose 114, total bilirubin 0.4, direct bilirubin 0.2, AST 292, ALT 139, alkaline phosphatase 61, and lipase of 540. Influenza A and B, COVID-19 test negative. CA T scan of abdomen and pelvis with contrast shows fluid distended stomach without gastric wall thicken ing, no outlet obstruction or duodenal abnormality, moderate sigmoid diverticulosis without diverticu la. Pancreas appeared normal on the CAT scan. Abdominal ultrasound limited to right upper quadrant shows evidence of gallstones without sonographic evidence of cholecystitis. Prominent common bile du ct without duct stone. Impression: 1.Acute pancreatitis, with gallstones. 2.Chronic kidney disease, stage 3B. 3.Hypertension. 4.Hyperlipidemia. 5.Impaired fasting glucose. 6.Diverticulosis. 7.Gastroesophageal reflux disease. 8.Irritable bowel syndrome. Plan: Admit the patient to hospital for further evaluation and management of this problem. The eileen ent is appropriate for inpatient and is expected to spend 2 midnights in hospital. SCD is in place f or DVT prophylaxis and the patient was encouraged to move her lower extremities to reduce chances of any DVT. Consult porcelain technician and general surgeon. The patient will need further workup eithe r ERCP or MRCP and we will wait for the consultation from Dr. Perez and Dr. Parra. We will repeat blood work tomorrow. IV fluid will be continued. I did discuss with the patient that what she had with IV Cipro was likely just the side effect of IV formulation and not a true allergic reaction, but ceftriaxone will be classified as allergic reaction from now on. Details and plan of treatment disc ussed with her. If there is no further testing planned today by porcelain technician, then we will giv e her clear liquid diet. I will see her tomorrow morning for followup. EDVIN/MODL Voice ID: [id number]
--- NOTE | 2021-09-05 14:22 | CON ---
Date of Consultation: 09/04/2021 Reason For Consultation: Midepigastric pain associated with cholelithiasis and probable cholecystiti s and possible choledocholithiasis. History Of Present Illness: The patient is a 76-year-old white female with history of hypertension, hyperlipidemia, insomnia, presented to hospital with a 1-day history of midepigastric pain radiating to the right and left upper quadrants and mid back and slightly to the right mid back as well. She r eports she had some chills, pain with a maximum she says 12/10, now down is to 1/10 on pain medicatio ns and IV fluids and antibiotics in the hospital. She denies any nausea, vomiting, fevers, constipat ion. She did have some diarrhea after eating a spicy avocado. She reports that has since resolved a nd believes this is only due to avocado. Ultrasound of abdomen revealed gallstones in gallbladder an d common bile duct at 6 mm. This is the upper limits of normal. No stones seen in the bile duct its elf. Her liver numbers, AST and ALT were somewhat elevated at around 100 to 200. Total bilirubin wa s initially was 1.4 down to 0.4 today. The patient feels well and has minimal pain as stated above, only 1/10, slight discomfort at most in the right upper quadrant midepigastric area radiating to her mid to right back. Past Medical History: Significant for hypertension, hyperlipidemia she has insomnia, has a hysterectomy on September 03, 1974, tubal ligation in 1973, cervical spine fusion in 2000, seasonal allergies, and TIA. Allergies: TO AUGMENTIN, CODEINE, IBUPROFEN, PREDNISONE, SULFA, TETRACYCLINE, . Medications: In the hospital; the patient is on Tylenol, Coreg, diphenhydramine which is Benadryl, P epcid, fentanyl, Zofran. She was on ceftriaxone, Cipro, and Flagyl which was stopped today it looks like. Social History: She is second . She has 2 sons, ages 52 and 55. She connolly s not smoke. She does not use tobacco. She has rare alcohol, possibly once or twice a year. 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 Family History: Father of unknown causes, but did have coronary artery disease and heart proble ms. He in 1984. Mother due to myocardial infarction or stroke, she reports. Review of Systems: The patient has midepigastric pain, greater than right upper quadrant and left upper quadrant, pain r adiating to the mid to mid right back and associated with some chills. She had diarrhea after eating spicy food avocado. She denies any nausea, vomiting, fevers, chills, chest pain, shortness of breat h, seizure, syncope, lower extremity edema, muscle aches, joint aches, backaches, depression, anxiety , hemoptysis, hematuria, dysuria, polyuria, polydipsia. Physical Examination: The patient is 5 feet 3 inches, 153 pounds, BMI 27.1 kg/m2. Temperature 97.2 degrees Fahrenheit, pul se 66, respirations 16, blood pressure 141/75, O2 saturation 97%. Laboratory Data: She has a white count of 6.2 down from 9.8 yesterday, hemoglobin of 12.0, hematocri t 36, MCV of 93, platelet count 172, polys of 55%, lymphocytes 34%, monocytes 8%, eosinophils 3%. So dium 144, potassium 3.7, chloride 113, bicarb 26, BUN 21, creatinine of 1.14 down from 1.31 yesterday , glucose 114, calcium 8.5, total bilirubin 0.4, direct bilirubin 0.2, AST 292, ALT of 139, alkaline phosphatase 61, total protein 5.9, albumin 2.7, globulin 3.2. Lipase of 542 that is the lipase today , yesterday of 1134. Her total bilirubin yesterday was 1.1, today is 0.4. Yesterday total direct bi lirubin was 0.7, down to 0.2 today. Influenza type A and B and COVID testing were all negative. Ult rasound of abdomen reveals gallstones in gallbladder with common bile duct of 6 mm, upper limits of n ormal. CT scan reveals sigmoid diverticulosis without diverticulitis and fluid distended stomach wit h gastric wall thickening, otherwise negative. Impression: 1.Cholelithiasis with probable cholecystitis, midepigastric pain, greater right upper quadrant radiating to the mid right back and mid back slight to the right. Pain was 12/10 "prior to adm ission," now down to 10 on p.r.n. pain medicines, antiemetics. Later she had chills, but this seem s to have resolved as well. She had diarrhea after eating spicy avocado. She denies any nausea, vom iting, fevers, constipation, melena, hematemesis, coffee-grounds emesis, other issues. 2.Ultrasound of abdomen revealed gallstones in gallbladder and a 6 mm common bile duct upper limits of normal with no stones seen in the duct. 3.History of hypertension, hyperlipidemia she reports she could have high triglycerides as well, maybe associated with pancreatitis, insomnia, cervical spine fusion in 2000, hysterectomy on ruary 1974 and tubal ligation in 1973. Recommendations: 1.Continue IV fluids, IV antibiotics. 2.Keep the patient n.p.o. 3.Lap zachery as per Surgery. 4.P.r.n. pain medications, antiemetics. 5.We will follow. 6.Check lipid panel since the patient reports lipids could have high triglycerides as wel l to be an issue for pancreatitis. ZANA/JASS Voice ID: [id number] Report ID: [id number]
--- NOTE | 2021-09-06 09:23 | DS ---
Date of Discharge: 09/05/2021 Disposition: Discharged to go home. Physical Examination: HEENT: Unremarkable. Lungs: Clear to auscultation. Heart: Heart sounds normal. Abdomen: Soft, bowel sounds normal. No guarding, rigidity, tenderness, or distention. Extremities: No leg edema. Laboratory Data: Upon admission on 09/03/2021; white count was 9.8, hemoglobin was 13.6, and platele ts 214. Today, last CBC, white count 9, hemoglobin 12, and platelets 135. Upon admission, sodium 14 1, potassium 3.6, chloride 108, bicarb 29, BUN 27, creatinine 1.31, glucose 131, total bilirubin 1.1, direct bilirubin 0.7, AST 269, ALT 82, alkaline phosphatase 80. Yesterday, BUN 21, creatinine 1.14. AST 292, ALT 139, alkaline phosphatase 61, total bilirubin 0.4, direct bilirubin 0.2. Today, her A ST 153, ALT 115, alkaline phosphatase 62, total bilirubin 0.3. Discharge Medications And Instructions: 1.Continue all prior home medication except do not take fenofibrate. 2.May use Tylenol 500 mg take 1 tablet by mouth 4 times a day as needed for pain. 3.Follow up at my office on 09/08/2021 at 10 a.m. 4.Follow up with Dr. Katz next week and patient to call his office to schedule appointment. Hospital Course: This is a 76-year-old female patient admitted to the hospital with abdominal pain. Please see dictated H and P for more information. The patient was evaluated in the ER, she was admi tted to the hospital with acute pancreatitis and gallstones. The patient had a CAT scan of abdomen a nd abdominal ultrasound done in the emergency room and GI consultation from Dr. Parra and General Sanchez rgery consultation from Dr. Katz was obtained. Yesterday, both of the specialists evaluated the p atient and Dr. Katz recommended laparoscopic cholecystectomy and intraoperative cholangiogram, whi ch came back negative for any evidence of biliary stone, so patient will not require any ERCP or any further procedure or intervention. The patient had laparoscopic cholecystectomy done yesterday and t his morning when I saw her she was feeling much better. She denied any kind of abdominal pain at all and she is tolerating diet very well. No nausea, no vomiting. Overall, her condition is stable and I will see her as outpatient for followup. Final Diagnoses: 1.Acute pancreatitis. 2.Gallstones. 3.Hypertension. 4.Hyperlipidemia. 5.Thrombocytopenia. EDVIN/MODL Voice ID: [id number] Report ID: [id number]
== END 2021-09-05 11:30 | disposition home or self-care (01) | DRG 417 ==
LOC: ER 15:16 → ERHOLD 18:46 → 2ND 20:32
PROVIDERS: ADMIT Internal Medicine; ATTEND Internal Medicine
PROC: BF00YZZ Plain Radiography of Bile Ducts using Other Contrast (ICD-10-PCS; 2021-09-04)
PROC: 0FT44ZZ Resection of Gallbladder, Percutaneous Endoscopic Approach (ICD-10-PCS; principal; 2021-09-04 13:30)
DX: K80.12 Calculus of gallbladder with acute and chronic cholecystitis without obstruction (principal); K85.10 Biliary acute pancreatitis without necrosis or infection; E78.5 Hyperlipidemia, unspecified; K21.9 Gastro-esophageal reflux disease without esophagitis; K58.9 Irritable bowel syndrome, unspecified; K57.90 Diverticulosis of intestine, part unspecified, without perforation or abscess without bleeding; I12.9 Hypertensive chronic kidney disease with stage 1 through stage 4 chronic kidney disease, or unspecified chronic kidney disease; N18.32 Chronic kidney disease, stage 3b; D69.6 Thrombocytopenia, unspecified; Z20.822 Contact with and (suspected) exposure to COVID-19
CPT/HCPCS: 0240U; 36415; 74177; 74300; 76705; 80048; 80053; 80076; 82565; 83690; 85025; 88304; 94010; 99285; J0744; J1170; J1200; J2250; J2370; J2405; J2704; J2710; J3010; J7120; J7799; Q9967

== ENCOUNTER 2023-02-28 19:50 | Emergency (ER) | payer OTHER ==
--- NOTE | 2023-02-28 20:22 | RAD REPORT ---
EXAM DESCRIPTION: RAD - Chest Pa And Lat (2 Views) - 02/28/2023 8:17 pm CLINICAL HISTORY: COUGH Chest pain. COMPARISON: Chest Single View dated 11/28/2016; CHEST SINGLE VIEW dated 01/04/2015; CHEST SINGLE VIEW dated 05/04/2014; CHEST PA AND LAT 2 VIEW dated 10/10/2011 TECHNIQUE: PA and lateral views of the chest were obtained. FINDINGS: The lungs are hyperexpanded compatible with COPD. The heart is upper limit of normal in si ze. No fracture or aggressive bony process. Cervical spine hardware plate. IMPRESSION: COPD without acute process identified. The USPSTF recommends annual screening for lung cancer with low-dose CT (LDCT) in adults aged 50 to 8 0 years who have a 20 pack-year smoking history and currently smoke or have quit within the past 15 y ears.
--- NOTE | 2023-02-28 20:46 | ER ---
Nurse's Notes [facility] Name: Margret Farris Age: 77 yrs Sex: Female : 1945 Arrival Date: 02/28/2023 Time: 19:50 Bed IW5 Private MD: Lelia Lim C Diagnosis: Foreign body in esophagus-resolved Presentation: 02/28 20:34 Chief complaint: Choked on vitamin at 1930, c/o throat pain 09/22. Coronavirus screen: hb At this time, the client does not indicate any symptoms associated with coronavirus-19. Ebola Screen: No symptoms or risks identified at this time. Initial Sepsis Screen: Does the patient meet any 2 criteria? No. Patient's initial sepsis screen is negative. Does the patient have a suspected source of infection? No. Patient's initial sepsis screen is negative. Risk Assessment: Do you want to hurt yourself or someone else? Patient reports no desire to harm self or others. Onset of symptoms was February 28, 2023. 20:34 Method Of Arrival: Ambulatory hb 20:34 Acuity: SHARON 4 hb Triage Assessment: 20:39 General: Appears in no apparent distress. Behavior is calm, cooperative. Pain: Pain hb currently is 9 out of 10 on a pain scale. EENT: Reports sore throat. Neuro: Level of Consciousness is awake, alert, obeys commands, Oriented to person, place, time, situation. Cardiovascular: Patient's skin is warm and dry. Respiratory: Respiratory effort is even, unlabored, Respiratory pattern is regular, symmetrical. Historical: - Allergies: 20:36 Augmentin; hb 20:36 Bextra; hb 20:36 Codeine; hb 20:36 Ephedrine Analogues; hb 20:36 Ibuprofen; hb 20:36 Prednisone; hb 20:36 Sulfa (Sulfonamide Antibiotics); hb 20:36 TETRACYCLINES; hb - PMHx: 20:36 High Cholesterol; Hypertension; seasonal allergies; TIA; hb - Immunization history:: Adult Immunizations up to date. - Social history:: Smoking status: Patient denies any tobacco usage or history of. Screenin:40 [facility] ED Fall Risk Assessment (Adult) Score/Fall Risk Level 0 - 2 = Low Risk hb Oriented to surroundings, Maintained a safe environment. Abuse screen: Denies threats or abuse. Denies injuries from another. Nutritional screening: No deficits noted. Tuberculosis screening: No symptoms or risk factors identified. Assessment: 20:40 General: See triage assessment . hb Vital Signs: 20:34 BP 143 / 87; Pulse 66; Resp 16; Temp 98.2(O); Pulse Ox 100% on R/A; Weight 63.5 kg; hb Height 5 ft. 0 in. ; Pain 9/10; 20:34 Body Mass Index 27.34 (63.50 kg, 152.4 cm) hb 20:34 Pain Scale: Adult hb ED Course: 19:53 Patient arrived in ED. mr 19:53 Lelia Lim MD is Private Physician. mr 19:57 Courtney Davidson [facility]-C [facility]. kb 19:57 Boyd Gregg MD is Attending Physician. kb 20:18 Chest Pa And Lat (2 Views) XRAY In Process Unspecified. EDMS 20:36 Triage completed. hb 20:37 Arm band placed on. hb 20:40 Patient has correct armband on for positive identification. Provided Education on: . hb 20:40 No provider procedures requiring assistance completed. Patient did not have IV access hb during this emergency room visit. Administered Medications: No medications were administered Medication: 20:40 VIS not applicable for this client. hb Outcome: 20:45 Discharge ordered by MD. kb 21:02 Patient left the ED. hb Signatures: Dispatcher [employer] EDMS Courtney Davidson FNP-C FNP-Ckb Rivera, Mary mr VivasDanica, RN RN hb
--- NOTE | 2023-02-28 20:46 | EDPHYS ---
Physician Documentation [facility] Name: Margret Farris Age: 77 yrs Sex: Female : 1945 Arrival Date: 02/28/2023 Time: 19:50 Bed IW5 Private MD: Lelia Lim C ED Physician Boyd Gregg HPI: 02/28 22:48 This 77 yrs old Female presents to ER via Ambulatory with complaints of Choked/Choking. kb 22:48 The patient presents with a foreign body sensation in the throat. The patient describes kb throat pain as constant. Onset: The symptoms/episode began/occurred 30 minute(s) ago. Severity of symptoms: At their worst the symptoms were moderate, in the emergency department the symptoms have improved. Modifying factors: The symptoms are alleviated by nothing, the symptoms are aggravated by swallowing. Associated signs and symptoms: Pertinent positives: cough, Sore throat. The patient has not experienced similar symptoms in the past. The patient has not recently seen a physician. Patient reports she was taking her pills and one got stuck in her throat. States she was able to get it up but has had a cough with phlegm and she did not think she would be able to sleep tonight if she did not come in to get checked out. States the cough and phlegm has been going on for a long time and Dr. Lim said it was normal for her.. Historical: - Allergies: 20:36 Augmentin; hb 20:36 Bextra; hb 20:36 Codeine; hb 20:36 Ephedrine Analogues; hb 20:36 Ibuprofen; hb 20:36 Prednisone; hb 20:36 Sulfa (Sulfonamide Antibiotics); hb 20:36 TETRACYCLINES; hb - PMHx: 20:36 High Cholesterol; Hypertension; seasonal allergies; TIA; hb - Immunization history:: Adult Immunizations up to date. - Social history:: Smoking status: Patient denies any tobacco usage or history of. ROS: 22:46 Constitutional: Negative for fever, chills, and weight loss. kb 22:46 ENT: Positive for sore throat. 22:46 Respiratory: Positive for cough. 22:46 All other systems are negative. Exam: 22:46 Constitutional: This is a well developed, well nourished patient who is awake, alert, kb and in no acute distress. Head/Face: Normocephalic, atraumatic. ENT: Moist Mucous membranes Cardiovascular: Regular rate and rhythm with a normal S1 and S2. No gallops, murmurs, or rubs. No pulse deficits. Respiratory: Respirations even and unlabored. No increased work of breathing. Talking in full sentences Skin: Warm, dry with normal turgor. Normal color. MS/ Extremity: Pulses equal, no cyanosis. Neurovascular intact. Full, normal range of motion. Neuro: Awake and alert, GCS 15, oriented to person, place, time, and situation. Moves all extremities. Normal gait. Vital Signs: 20:34 BP 143 / 87; Pulse 66; Resp 16; Temp 98.2(O); Pulse Ox 100% on R/A; Weight 63.5 kg; hb Height 5 ft. 0 in. ; Pain 9/10; 20:34 Body Mass Index 27.34 (63.50 kg, 152.4 cm) hb 20:34 Pain Scale: Adult hb MDM: 19:57 Patient medically screened. kb 22:46 Differential diagnosis: Esophageal foreign body, aspiration, pneumonia. Data reviewed: kb vital signs, nurses notes. Test considered but Not performed: X-ray: Soft tissue neck considered but patient was able to get pill up and states her throat is feels raw. Counseling: I had a detailed discussion with the patient and/or guardian regarding the historical points, exam findings, and any diagnostic results supporting the discharge/admit diagnosis, radiology results, the need for outpatient follow up, a family practitioner, to return to the emergency department if symptoms worsen or persist or if there are any questions or concerns that arise at home. 02/28 20:00 Order name: Chest Pa And Lat (2 Views) XRAY; Complete Time: 20:26 kb Administered Medications: No medications were administered Disposition: 03/01 10:02 Co-signature as Attending Physician, Boyd Gregg MD I reviewed the patient's care rt provided by the Advanced Practice Provider and agree with the diagnosis and treatment plan. Disposition Summary: 02/28/23 20:45 Discharge Ordered Location: Home kb Condition: Stable kb Diagnosis - Foreign body in esophagus - resolved kb Followup: kb - With: Emergency Department - When: As needed - Reason: Worsening of condition Followup: kb - With: Private Physician - When: 2 - 3 days - Reason: Recheck today's complaints, Continuance of care, Re-evaluation by your physician Discharge Instructions: - Discharge Summary Sheet kb - Swallowed Foreign Body, Adult, [id number] kb Forms: - Medication Reconciliation Form kb - Thank You Letter kb - Antibiotic Education kb - Prescription Opioid Use kb - Patient Portal Instructions kb - Leadership Thank You Letter kb Signatures: Dispatcher [employer] Courtney Ricci, SERAFIN KHAN-Danica Lerma, RN RN Boyd Anaya MD MD rt
[2023-02-28] MEDS ORDERED: ACETAMINOPHEN 500 MG TAB ONE (21:06)
[2023-02-28 22:11] VITALS: BP 143/87; TEMP 98.2; O2SAT 100
== END 2023-02-28 21:02 | disposition home or self-care (01) ==
LOC: ER 19:50
DX: T18.198A Other foreign object in esophagus causing other injury, initial encounter (principal); Z88.1 Allergy status to other antibiotic agents; Z88.2 Allergy status to sulfonamides; Z88.5 Allergy status to narcotic agent; Z88.6 Allergy status to analgesic agent; Z88.8 Allergy status to other drugs, medicaments and biological substances
CPT/HCPCS: 71046

== ENCOUNTER 2024-08-31 00:56 | Observation (INO) | payer OTHER ==
[2024-08-31] MEDS ORDERED: FAMOTIDINE 20 MG/2 ML VIAL IV ONE (01:48)
[2024-08-31] MEDS ORDERED: ASPIRIN 81 MG CHEWABLE TABLET ONE (01:48)
--- NOTE | 2024-08-31 02:05 | RAD REPORT ---
EXAM: XR Chest 1 View AP HISTORY: Chest pain COMPARISON: Chest 2 Views AP/PA Lateral 02/28/2023 TECHNIQUE: Chest 1 View AP FINDINGS: Trachea midline. Heart size and pulmonary vessels within normal limits. Lungs clear without evidence of consolidation, mass, or significant pulmonary edema. No significant pleural effusion or pneumothorax. Mild symmetric bilateral lower lungs/chest density most likely represents overlying breast/chest wall attenuation artifact. Partially-imaged anterior cervical spinal fusion hardware. IMPRESSION: Unremarkable chest radiograph. Electronically signed by: Escobar Taylor MD 08/31/2024 01:57 AM [facility] Due to temporary technical issues with the [employer] reporting system, reports are being ileana d by the in-house radiologist without review as a courtesy to ensure prompt reporting the interpreting radiologist is fully responsible for the content of the report. Transcribed Date/Time: 08/31/2024 2:05 AM
[2024-08-31 02:21] LABS: PT Prothrombin Time 11.1 SECONDS (9.4-12.5); Protime INR 1.06
[2024-08-31 02:23] LABS: Absolute Eosinophils 0.3 K/uL (0-0.5); Absolute Lymphocytes (CBC) 2.6 K/uL (0.7-4.9); Absolute Monocytes 0.5 K/uL (0.1-1.3); Absolute Neutrophil 2.5 K/uL (1.8-8.0); Basophils % 0.5 % (0-1.3); Eosinophils % 4.3 % (0-4.4); Hematocrit 38.2 % (36.0-45.0); Hemoglobin 12.8 g/dL (12.0-15.0); Lymphocytes % 44.2 % (15.3-44.8); MCH 31.1 pg (27.0-35.0); MCHC 33.4 g/dL (32.0-36.0); MPV 8.4 fL (7.6-11.3); Monocytes % 9.2 % (3.3-12.3); Neutrophils % 41.8 % (41.7-73.7); Nucleated Red Blood Cells % 0.1 % (0-0); Platelets 199 thou/uL (152-406); RBC Red Blood Cell Count 4.11 M/uL (3.86-4.86); Red Cell Distribution Width 13.4 % (12.1-15.2)
[2024-08-31 02:36] LABS: ALT/SGPT 18 U/L (13-56); AST/SGOT 20 U/L (15-37); Albumin 3.1 g/dL (3.4-5.0); Albumin/Globulin Ratio 0.8 (1.1-1.8); Alkaline Phosphatase 59 U/L (45-117); Anion Gap 7.4 mEq/L (5.0-15.0); BUN Blood Urea Nitrogen 30 mg/dL (7-18); Bicarbonate 29 mEq/L (21-32); Bilirubin Total 0.3 mg/dL (0.2-1.0); Globulin 3.8 g/dL (2.3-3.5); Glomerular Filtration Rate 44 ml/min (=/>90); Glucose Level 109 mg/dL (74-106); NT PRO-BNP 412 pg/mL (<450); Potassium 3.4 mEq/L (3.5-5.1); Protein, Total 6.9 g/dL (6.4-8.2); Sodium Level 143 mEq/L (136-145); Troponin High Sensitivity 4.6 pg/mL (<58.9)
[2024-08-31 02:38] LABS: Bilirubin Direct < 0.2 mg/dL (0-0.2); Bilirubin Indirect, Calculated 0.1 mg/dL (0.2-0.8)
--- NOTE | 2024-08-31 03:18 | ER ---
Nurse's Notes [facility] Name: Margret Farris Age: 79 yrs Sex: Female : 1945 Arrival Date: 08/31/2024 Time: 00:56 Bed 7 Private MD: Diagnosis: Chest pain, unspecified Presentation: 08/31 01:15 Chief complaint: Patient states: chest pain that came on as indigestion then had a vc1 sharp pain. Coronavirus screen: Client denies travel out of the [place] in the last 14 days. At this time, the client does not indicate any symptoms associated with coronavirus-19. Ebola Screen: Patient negative for fever greater than or equal to 101.5 degrees Fahrenheit, and additional compatible Ebola Virus Disease symptoms Patient denies exposure to infectious person. Patient denies travel to an Ebola-affected area in the 21 days before illness onset. No symptoms or risks identified at this time. Initial Sepsis Screen: Does the patient meet any 2 criteria? No. Patient's initial sepsis screen is negative. Does the patient have a suspected source of infection? No. Patient's initial sepsis screen is negative. Risk Assessment: Do you want to hurt yourself or someone else? Patient reports no desire to harm self or others. Onset of symptoms was August 30, 2024. 01:15 Method Of Arrival: Ambulatory vc1 01:15 Acuity: SHARON 3 vc1 Triage Assessment: 01:32 General: Appears in no apparent distress. comfortable, slender, well groomed, well vc1 developed, well nourished, Behavior is calm, cooperative, appropriate for age. Pain: Complains of pain in anterior aspect of left upper chest Pain does not radiate. Pain currently is 3 out of 10 on a pain scale. Quality of pain is described as sharp. EENT: No deficits noted. No signs and/or symptoms were reported regarding the EENT system. Neuro: Level of Consciousness is awake, alert, obeys commands, Oriented to person, place, time, situation, Appropriate for age. Cardiovascular: Capillary refill < 3 seconds Patient's skin is warm and dry. Cardiovascular: Reports chest pain, Chest pain is described as mild. Respiratory: Airway is patent Respiratory effort is even, unlabored, Respiratory pattern is regular, symmetrical. GI: Abdomen is round non-distended, Reports diarrhea, gaseousness. : No deficits noted. No signs and/or symptoms were reported regarding the genitourinary system. Derm: Skin is dry, Skin is normal. Musculoskeletal: Circulation, motion, and sensation intact. Range of motion: intact in all extremities. Historical: - Allergies: 01:30 Augmentin; vc1 01:30 Bextra; vc1 01:30 Codeine; vc1 01:30 Ephedrine Analogues; vc1 01:30 Ibuprofen; vc1 01:30 Prednisone; vc1 01:30 Sulfa (Sulfonamide Antibiotics); vc1 01:30 TETRACYCLINES; vc1 - PMHx: 01:30 High Cholesterol; Hypertension; seasonal allergies; TIA; vc1 01:31 Chronic Kidney Disease; vc1 - PSHx: 01:30 cervical fusion; Cholecystectomy; hysterectomy; Ligation of fallopian tube; Lumpectomy vc1 of breast; - Immunization history:: Client reports receiving the 2nd dose of the Covid vaccine, Flu vaccine is not up to date. - Infectious Disease History:: Denies. - Social history:: Smoking status: Patient denies any tobacco usage or history of. Screenin:01 [facility] ED Fall Risk Assessment (Adult) History of falling in the last 3 months, bm8 including since admission No falls in past 3 months (0 pts) Confusion or Disorientation No (0 pts) Intoxicated or Sedated No (0 pts) Impaired Gait No (0 pts) Mobility Assist Device Used No (0 pt) Altered Elimination No (0 pt) Score/Fall Risk Level 0 - 2 = Low Risk Oriented to surroundings, Maintained a safe environment, Educated pt \T\ family on fall prevention, incl call for assistance when getting out of bed, Assessed \T\ reinforced patient's understanding of fall precautions, Hourly rounding (assess needs \T\ fall precautionary measures) done, Used ambulatory aids as needed (educated on \T\ assisted with), Used gait belt as appropriate. Abuse screen: Denies threats or abuse. Nutritional screening: No deficits noted. Tuberculosis screening: No symptoms or risk factors identified. Assessment: 02:01 General: Appears in no apparent distress. comfortable, Behavior is calm, cooperative, bm8 appropriate for age. Pain: Denies pain. Neuro: No deficits noted. Level of Consciousness is awake, alert, obeys commands, Oriented to person, place, time, situation, Appropriate for age. Cardiovascular: Denies chest pain, lightheadedness, nausea, palpitations, shortness of breath, vomiting, Heart tones S1 S2 present. Respiratory: No deficits noted. Airway is patent Respiratory effort is even, unlabored, Respiratory pattern is regular, symmetrical, Breath sounds are clear bilaterally. GI: No signs and/or symptoms were reported involving the gastrointestinal system. : No signs and/or symptoms were reported regarding the genitourinary system. EENT: No signs and/or symptoms were reported regarding the EENT system. Derm: No signs and/or symptoms reported regarding the dermatologic system. Musculoskeletal: No signs and/or symptoms reported regarding the musculoskeletal system. 03:32 Reassessment: Patient appears in no apparent distress at this time. Patient and/or bm8 family updated on plan of care and expected duration. Pain level reassessed. Patient is alert, oriented x 3, equal unlabored respirations, skin warm/dry/pink. Patient denies pain at this time. Patient states feeling better. Patient states symptoms have improved. 03:33 Pain: Pain began 1 day ago. bm8 Vital Signs: 01:15 BP 127 / 67; Pulse 70; Resp 18; Temp 98.8; Pulse Ox 97% ; Height 5 ft. 0 in. ; Pain vc1 3/10; 02:01 BP 140 / 80; Pulse 68; Resp 18; Temp 98.8; Pulse Ox 97% ; Pain 0/10; bm8 03:32 BP 129 / 66; Pulse 74; Resp 18; Temp 98.8; Pulse Ox 97% ; Pain 0/10; bm8 01:15 Pain Scale: Adult vc1 02:01 Pain Scale: Adult bm8 03:32 Pain Scale: Adult bm8 Darius Coma Score: 02:01 Eye Response: spontaneous(4). Motor Response: obeys commands(6). Verbal Response: bm8 oriented(5). Total: 15. 03:32 Eye Response: spontaneous(4). Motor Response: obeys commands(6). Verbal Response: bm8 oriented(5). Total: 15. ED Course: 01:00 Patient arrived in ED. gm2 01:01 Mychal Oviedo PA is PHCP. cp 01:01 Mychal Solis MD is Attending Physician. cp 01:16 Triage completed. vc1 01:29 Wylie, Elroy, RN is Primary Nurse. bm8 01:29 Inserted saline lock: 20 gauge in left antecubital area, using aseptic technique. Blood bm8 collected. Flushed with 10 mL NS. 01:31 Arm band placed on right wrist. vc1 01:39 XRAY Chest (1 view) In Process Unspecified. EDMS 01:39 X-ray completed. Portable x-ray completed in exam room. Patient tolerated procedure mh1 well. 02:01 No provider procedures requiring assistance completed. Initial lab(s) drawn, by me, bm8 sent to lab. Patient maintains SpO2 saturation greater than 95% on room air. 02:01 Patient has correct armband on for positive identification. Placed in gown. Bed in low bm8 position. Call light in reach. Side rails up X 1. Client placed on continuous cardiac and pulse oximetry monitoring. NIBP monitoring applied. grant coordinator on. Pulse ox on. NIBP on. Door closed. Noise minimized. Warm blanket given. Pillow given. Verbal reassurance given. Head of bed elevated. 03:17 Prince Haynes MD is Hospitalizing Provider. cp 03:32 Patient admitted, IV remains in place. bm8 03:32 Provided Education on: need for admission. bm8 12:03 Diet: DELIVERED LUNCH TRAY PT PT. sp 16:59 Diet: DELIVERED DINNER TRAY TO PT. sp Administered Medications: 01:49 Drug: Aspirin PO Chewable Tablet 162 mg PO once Route: PO; bm8 03:31 Follow up: Response: No adverse reaction bm8 01:49 Drug: Famotidine IVP 20 mg IVP once; dilute with 10 mL 0.9% NaCl; give over 2 minutes bm8 Route: IVP; Site: left antecubital; 03:31 Follow up: Response: No adverse reaction bm8 Medication: 02:01 VIS not applicable for this client. bm8 Outcome: 03:18 Decision to Hospitalize by Provider. cp 03:32 Admitted to ER Hold. Please see [facility] for further documentation. bm8 03:32 Condition: stable 03:32 Instructed on the need for admit, Demonstrated understanding of instructions, follow-up care, medications, 17:34 Patient left the ED. bp Signatures: Dispatcher [employer] EDMS Pushpa Blake Martha mh1 Mychal Oviedo PA PA cp Peltier, Brian, RN RN bp Ramona Peguero, RN RN vc1 Zo Miner 2 Elroy Wylie, RN RN bm8
--- NOTE | 2024-08-31 03:18 | EDPHYS ---
Physician Documentation [facility] Name: Margret Farris Age: 79 yrs Sex: Female : 1945 Arrival Date: 08/31/2024 Time: 00:56 Bed 7 Private MD: Mychal Ruiz HPI: 08/31 01:10 This 79 yrs old Female presents to ER via Ambulatory with complaints of Chest Pain. cp 01:10 The patient or guardian reports chest pain that is located primarily in the anterior cp chest wall, left. 01:10 Onset: about 12 this morning. The pain does not radiate. The chest pain is described as cp burning, sharp. Duration: The patient or guardian reports a single episode, that is now resolved. Historical: - Allergies: 01:30 Augmentin; vc1 01:30 Bextra; vc1 01:30 Codeine; vc1 01:30 Ephedrine Analogues; vc1 01:30 Ibuprofen; vc1 01:30 Prednisone; vc1 01:30 Sulfa (Sulfonamide Antibiotics); vc1 01:30 TETRACYCLINES; vc1 - PMHx: 01:30 High Cholesterol; Hypertension; seasonal allergies; TIA; vc1 01:31 Chronic Kidney Disease; vc1 - PSHx: 01:30 cervical fusion; Cholecystectomy; hysterectomy; Ligation of fallopian tube; Lumpectomy vc1 of breast; - Immunization history:: Client reports receiving the 2nd dose of the Covid vaccine, Flu vaccine is not up to date. - Infectious Disease History:: Denies. - Social history:: Smoking status: Patient denies any tobacco usage or history of. ROS: 01:15 Constitutional: Negative for chills, fever, poor PO intake, cp 01:15 Eyes: Negative for injury, pain, redness, and discharge, cp 01:15 ENT: Negative for drainage from ear(s), ear pain, sore throat, 01:15 Cardiovascular: Positive for chest pain, Negative for edema, palpitations, 01:15 Respiratory: Negative for cough, shortness of breath, wheezing, 01:15 Abdomen/GI: Negative for abdominal pain, vomiting, diarrhea, constipation, 01:15 Back: Negative for pain at rest, pain with movement, 01:15 Neuro: Negative for altered mental status, dizziness, headache, weakness, Exam: 01:15 ECG was reviewed by the Attending Physician. cp 01:20 Constitutional: The patient appears in no acute distress, alert, awake, cp non-diaphoretic, non-toxic, well developed, well nourished, 01:20 Head/Face: Normocephalic, atraumatic. cp 01:20 Eyes: Periorbital structures: appear normal, Conjunctiva: normal, no exudate, no cp injection, Sclera: no appreciated abnormality, Lids and lashes: appear normal, bilaterally, 01:20 ENT: External ear(s): are unremarkable, Nose: is normal, Mouth: Lips: moist, Oral mucosa: moist, Posterior pharynx: Airway: no evidence of obstruction, patent, 01:20 Neck: ROM/movement: is normal, is supple, without pain, no range of motions limitations, 01:20 Chest/axilla: Inspection: normal, 01:20 Cardiovascular: Rate: normal, Rhythm: regular, 01:20 Respiratory: the patient does not display signs of respiratory distress, Respirations: normal, no use of accessory muscles, no retractions, labored breathing, is not present, Breath sounds: are clear throughout, no decreased breath sounds, no stridor, no wheezing, 01:20 Abdomen/GI: Inspection: abdomen appears normal, Palpation: abdomen is soft and non-tender, in all quadrants, 01:20 Back: pain, is absent, ROM is normal, 01:20 Neuro: Orientation: to person, place \T\ time. Mentation: is normal, Motor: moves all fours, strength is normal, Sensation: is normal, Vital Signs: 01:15 BP 127 / 67; Pulse 70; Resp 18; Temp 98.8; Pulse Ox 97% ; Height 5 ft. 0 in. ; Pain vc1 3/10; 02:01 BP 140 / 80; Pulse 68; Resp 18; Temp 98.8; Pulse Ox 97% ; Pain 0/10; bm8 03:32 BP 129 / 66; Pulse 74; Resp 18; Temp 98.8; Pulse Ox 97% ; Pain 0/10; bm8 01:15 Pain Scale: Adult vc1 02:01 Pain Scale: Adult bm8 03:32 Pain Scale: Adult bm8 Davidson Coma Score: 02:01 Eye Response: spontaneous(4). Motor Response: obeys commands(6). Verbal Response: bm8 oriented(5). Total: 15. 03:32 Eye Response: spontaneous(4). Motor Response: obeys commands(6). Verbal Response: bm8 oriented(5). Total: 15. MDM: 02:00 Differential diagnosis: abnormal EKG, acute myocardial infarction, pericarditis, cp pleurisy, pneumonia, pneumothorax, stable angina, unstable angina. 03:18 Medical Screening Exam initiated cp 03:18 The patient was given aspirin in the Emergency Department. cp 03:18 Data reviewed: vital signs, nurses notes, lab test result(s), EKG, radiologic studies, cp plain films, and as a result, I will admit patient. I considered the following discharge prescriptions or medication management in the emergency department Medications were administered in the Emergency Department. See MAR. Independent interpretation of the following test(s) in the Emergency Department EKG: See my EKG interpretation above. Care significantly affected by the following chronic conditions: Hypertension, Chronic Kidney Disease. Counseling: I had a detailed discussion with the patient and/or guardian regarding the historical points, exam findings, and any diagnostic results supporting the discharge/admit diagnosis, lab results, radiology results. 08/31 01:06 Order name: Basic Metabolic Panel; Complete Time: 02:42 08/31 02:43 Interpretation: Normal except: K 3.4; CL 110; GLUC 109; BUN 30; CRE 1.25; GFR 44. 08/31 01:06 Order name: CBC with Diff; Complete Time: 02:38 08/31 02:38 Interpretation: Reviewed. 08/31 01:06 Order name: LFT's; Complete Time: 02:42 08/31 02:43 Interpretation: Normal except: IBILI, CALC 0.1; ALB 3.1; GLOB 3.8; A/G 0.8. 08/31 01:06 Order name: Magnesium; Complete Time: 02:42 cp 08/31 01:06 Order name: NT PRO-BNP; Complete Time: 02:42 cp 08/31 01:06 Order name: PT-INR; Complete Time: 02:38 08/31 02:39 Interpretation: Reviewed. 08/31 01:06 Order name: Troponin HS; Complete Time: 02:42 cp 08/31 02:43 Interpretation: Reviewed. 08/31 03:23 Order name: Lipid Profile EDMS 08/31 03:23 Order name: Lipid Profile EDMS 08/31 03:23 Order name: Troponin High Sensitivity EDMS 08/31 03:23 Order name: Troponin High Sensitivity EDMS 08/31 03:23 Order name: Troponin High Sensitivity EDMS 08/31 03:23 Order name: Troponin High Sensitivity EDWA 08/31 01:06 Order name: XRAY Chest (1 view); Complete Time: 02:38 cp 08/31 02:44 Interpretation: Report review. cp 08/31 03:23 Order name: Echo with Doppler EDWA 08/31 01:06 Order name: Cardiac monitoring; Complete Time: 01:45 cp 08/31 01:06 Order name: EKG - Nurse/Tech; Complete Time: 01:15 cp 08/31 01:06 Order name: IV Saline Lock; Complete Time: 01:45 cp 08/31 01:06 Order name: Labs collected and sent; Complete Time: 01:45 cp 08/31 01:06 Order name: O2 Per Protocol; Complete Time: 01:45 cp 08/31 01:06 Order name: O2 Sat Monitoring; Complete Time: 01:45 cp EC:15 Rate is 74 beats/min. Rhythm is regular. RI interval is normal. QRS interval is normal. cp QT interval is normal. T waves are Inverted in lead aVR. Interpreted by me. Reviewed by me. Administered Medications: 01:49 Drug: Aspirin PO Chewable Tablet 162 mg PO once Route: PO; bm8 03:31 Follow up: Response: No adverse reaction bm8 01:49 Drug: Famotidine IVP 20 mg IVP once; dilute with 10 mL 0.9% NaCl; give over 2 minutes bm8 Route: IVP; Site: left antecubital; 03:31 Follow up: Response: No adverse reaction bm8 Disposition Summary: 08/31/24 03:18 Hospitalization Ordered Notes: Hospitalization Status: Observation cp Provider: Prince jaskaran Haynes Condition: Stable cp Problem: new cp Symptoms: have improved cp Bed/Room Type: Standard cp Location: [facility] ER HOLD(08/31/24 03:19) vk Room Assignment: ERHOLD-(08/31/24 03:19) vk Diagnosis - Chest pain, unspecified cp Forms: - Medication Reconciliation Form cp - SBAR form cp - Leadership Thank You Letter cp Signatures: Dispatcher [employer] EDMS Mychal Oviedo PA PA cp Calcote, Vanessa, RN RN vc1 Marleny Crawford Brad, RN RN bm8 Corrections: (The following items were deleted from the chart) 01:07 01:07 BASIC METABOLIC PANEL+C.LAB.BRZ ordered. EDMS EDMS 01:07 01:07 CBC+H.LAB.BRZ ordered. EDMS EDMS 01:07 01:07 HEPATIC FUNCTION+C.LAB.BRZ ordered. EDMS EDMS 01:07 01:07 MAGNESIUM+C.LAB.BRZ ordered. EDMS EDMS 01:07 01:07 PROBNP+C.LAB.BRZ ordered. EDMS EDMS 01:07 01:07 PROTIME (+INR)+COAG.LAB.BRZ ordered. EDMS EDMS 01:07 01:07 Troponin High Sensitivity+C.LAB.BRZ ordered. EDMS EDMS 01:07 01:07 Chest Single View+RAD.RAD.BRZ ordered. EDMS EDMS 03:19 03:18 Telemetry/MedSurg (observation) cp vk 03:19 03:18 cp john
[2024-08-31] MEDS ORDERED: NITROGLYCERIN 0.4 MG/TAB SL PRN (03:19)
[2024-08-31] MEDS ORDERED: HYDRALAZINE HCL 20 MG/ML VIAL IV PRN (03:49)
--- NOTE | 2024-08-31 03:49 | P.HP ---
Certification for Inpatient Patient admitted to: Observation With expected LOS: <2 Midnights Practitioner: I am a practitioner with admitting privileges, knowledge of patient current condition, hospital course, and medical plan of care. Services: Services provided to patient in accordance with Admission requirements found in Title 42 Section 412.3 of the Code of Federal Regulations Patient History Date of Service: 08/31/24 Reason for admission: chest pain History of Present Illness: Patient is a 79-year-old female with a past medical history of hypertension, hyperlipidemia and restless leg syndrome. She is presenting to the ER for evaluation of chest pain. Patient describing a left-sided chest pain that she is calling the twinge. It is radiating upward to her left upper extremity. She stated that her symptoms have become more frequent and noticeable lately. She is now unable to pursue her normal routine activities including going out and socializing. She did not take any nitroglycerin. Patient had a stress test 3 months ago for preop clearance for dental extraction. She was told that it was no significant abnormalities. Her first troponin is negative. EKG is normal. Her chest pain resolved by the time she arrived in the ER Allergies amoxicillin trihydrate [From Augmentin] Allergy (Verified 05/04/14 05:48) Hives/Rash codeine Allergy (Verified 05/04/14 05:48) Itching ephedrine Allergy (Verified 05/04/14 05:48) Itching/Hives/Rash Ephedrine Analogues Allergy (Verified 01/04/15 19:30) Unknown potassium clavulanate [From Augmentin] Allergy (Verified 05/04/14 05:48) Hives/Rash prednisone Allergy (Verified 01/04/15 19:30) Unknown pseudoephedrine Allergy (Verified 05/04/14 05:48) Itching/Hives/Rash Sulfa (Sulfonamide Antibiotics) Allergy (Verified 05/04/14 05:48) Itching Tetracyclines Allergy (Verified 05/04/14 05:48) Itching valdecoxib [From Bextra] Allergy (Verified 05/04/14 05:48) Itching Augmentin ES- Allergy (Uncoded 01/04/15 18:03) Unknown Home Medications: Aspirin [Aspirin EC 81 MG] 81 mg PO BEDTIME 05/04/14 Magnesium Oxide [Mag 0X*] 250 mg PO DAILY 05/04/14 [place]-3 Fatty Acids [Fish Oil] 1,000 mg PO BID 05/04/14 Zinc 1 tab PO DAILY 05/04/14 Latanoprost Ophth [Xalatan 0.005%*] 1 drop OP BEDTIME 01/04/15 Ca/D3/Mag Ox/Zinc/Intelligence Consultant/Jayant/Bor [Calcium 600-D3 Plus Caplet] 1 each PO DAILY 11/29/16 timoloL maleate [Timolol Maleate] 1 drop OP Q12H 11/29/16 Famotidine 40 mg PO BEDTIME 09/04/21 Folic Acid 1 mg PO DAILY 09/04/21 carvediloL [Carvedilol] 6.25 mg PO BID 09/04/21 - Past Medical/Surgical History Diabetic: No -: HTN -: Irritable bowel syndrome -: diverticulitis -: hyperlipidemia -: TIA -: hysterectomy -: cervical fusion -: tubal ligation -: neck surgery -: R breast benign tumor removal (1988) - Family History Mother -: Heart disease - Social History Alcohol use: Yes CD- Drugs: No Caffeine use: Yes Physical Examination - Physical Exam General: In no apparent distress HEENT: Atraumatic, Normocephalic Respiratory: Clear to auscultation bilaterally, Normal air movement Cardiovascular: No edema, Normal pulses, Regular rate/rhythm, Normal S1 S2, Systolic murmur Neurological: Normal speech - Studies Laboratory Data (last 24 hrs) 08/31/24 08/31/24 08/31/24 01:51 01:51 01:51 WBC 6.00 Hgb 12.8 Hct 38.2 Plt Count 199 PT 11.1 INR 1.06 Sodium 143 Potassium 3.4 L BUN 30 H Creatinine 1.25 H Glucose 109 H Magnesium 2.0 Total Bilirubin 0.3 AST 20 ALT 18 Alkaline Phosphatase 59 Assessment and Plan - Problems (Diagnosis) (1) Hypertension Current Visit: Yes Status: Acute (2) Restless leg syndrome Current Visit: Yes Status: Acute (3) Hyperlipidemia Current Visit: Yes Status: Acute (4) Chest pain Onset Date: 01/05/15 Current Visit: No Status: Acute (5) TIA (transient ischemic attack) Onset Date: 11/29/16 Current Visit: No Status: Acute - Plan Assessment This is a 79-year-old female with a past medical history of hypertension and hyperlipidemia. She is presenting for evaluation of chest pain. Her first troponin is negative. Her EKG is normal. Chest pain CKD stage III Hyperlipidemia Hypertension Restless leg syndrome History of TIA Plan: Will admit under observation with telemetry Start patient on scheduled aspirin and high intensity statin Check lipid panel and TTE Cardiology consult Resume rest of home medications upon reconciliation - Advance Directives Does patient have a Living Will: No Does patient have a Durable POA for Healthcare: No
[2024-08-31 04:21] VITALS: BMI 28.3
[2024-08-31] MEDS ORDERED: ACETAMINOPHEN 325 MG TABLET PO PRN (05:47)
[2024-08-31 06:07] LABS: Troponin High Sensitivity 3.6 pg/mL (<58.9)
[2024-08-31] MEDS ORDERED: ASPIRIN EC 81 MG TAB PO ONE (08:30)
[2024-08-31] MEDS: ASPIRIN EC 81 MG TAB PO SCH (08:58)
[2024-08-31] MEDS ORDERED: ROPINIROLE HCL 0.25 MG TAB PO PRN (10:20)
[2024-08-31 12:51] VITALS: TEMP 97.6
--- NOTE | 2024-08-31 12:56 | P.CNS ---
Date of Consult: 08/31/24 Chief Complaint: chest pain History of Present Illness: Patient with PMH of HTN, presented with chest pain for the last few days, sharp, no radiation, no other cardiac symptoms Allergies amoxicillin trihydrate [From Augmentin] Allergy (Verified 05/04/14 05:48) Hives/Rash codeine Allergy (Verified 05/04/14 05:48) Itching ephedrine Allergy (Verified 05/04/14 05:48) Itching/Hives/Rash Ephedrine Analogues Allergy (Verified 01/04/15 19:30) Unknown potassium clavulanate [From Augmentin] Allergy (Verified 05/04/14 05:48) Hives/Rash prednisone Allergy (Verified 01/04/15 19:30) Unknown pseudoephedrine Allergy (Verified 05/04/14 05:48) Itching/Hives/Rash Sulfa (Sulfonamide Antibiotics) Allergy (Verified 05/04/14 05:48) Itching Tetracyclines Allergy (Verified 05/04/14 05:48) Itching valdecoxib [From Bextra] Allergy (Verified 05/04/14 05:48) Itching Augmentin ES- Allergy (Uncoded 01/04/15 18:03) Unknown Home medications list reviewed: Yes Home Medications: Aspirin [Aspirin EC 81 MG] 81 mg PO BEDTIME 05/04/14 Magnesium Oxide [Mag 0X*] 250 mg PO DAILY 05/04/14 [place]-3 Fatty Acids [Fish Oil] 1,000 mg PO BID 05/04/14 Zinc 1 tab PO DAILY 05/04/14 Latanoprost Ophth [Xalatan 0.005%*] 1 drop OP BEDTIME 01/04/15 Ca/D3/Mag Ox/Zinc/Gravity Meter Observer/Jayant/Bor [Calcium 600-D3 Plus Caplet] 1 each PO DAILY 11/29/16 timoloL maleate [Timolol Maleate] 1 drop OP Q12H 11/29/16 Famotidine 40 mg PO BEDTIME 09/04/21 Folic Acid 1 mg PO DAILY 09/04/21 carvediloL [Carvedilol] 6.25 mg PO BID 09/04/21 Atorvastatin Calcium 20 mg PO 08/31/24 Losartan/Hydrochlorothiazide [Losartan-Hctz 50-12.5 mg Tab] 08/31/24 Ropinirole HCl 0.25 mg PO 08/31/24 - Past Medical/Surgical History Diabetic: No -: HTN -: Irritable bowel syndrome -: diverticulitis -: hyperlipidemia -: TIA -: hysterectomy -: cervical fusion -: tubal ligation -: neck surgery -: R breast benign tumor removal (1988) - Family History Mother Medical History: Heart disease - Social History Smoking Status: Unknown if ever smoked Alcohol use: Yes CD- Drugs: No Caffeine use: Yes Place of Residence: Home Review of Systems 10-point ROS is otherwise unremarkable Physical Examination Temp Pulse Resp BP Pulse Ox 97.6 F 62 14 136/70 100 08/31/24 12:00 08/31/24 12:00 08/31/24 12:00 08/31/24 12:00 08/31/24 12:00 General: Alert, In no apparent distress HEENT: Atraumatic, PERRLA, Mucous membr. moist/pink, EOMI, Sclerae nonicteric Neck: Supple, 2+ carotid pulse no bruit, No LAD, Without JVD or thyroid abnormality Respiratory: Clear to auscultation bilaterally, Normal air movement Cardiovascular: Regular rate/rhythm, Normal S1 S2 Gastrointestinal: Normal bowel sounds, No tenderness Musculoskeletal: No tenderness Integumentary: No rashes Neurological: Normal gait, Normal speech, Normal tone, Normal affect Lymphatics: No axilla or inguinal lymphadenopathy Laboratory Data (last 24 hrs) 08/31/24 08/31/24 08/31/24 01:51 01:51 01:51 WBC 6.00 Hgb 12.8 Hct 38.2 Plt Count 199 PT 11.1 INR 1.06 Sodium 143 Potassium 3.4 L BUN 30 H Creatinine 1.25 H Glucose 109 H Magnesium 2.0 Total Bilirubin 0.3 AST 20 ALT 18 Alkaline Phosphatase 59 - Problems (1) Chest pain Onset Date: 01/05/15 Current Visit: No Status: Acute Plan: atypical with normal EKG, negative cardiac markers and recent negative stress test No further cardiac work up needed, outpatient follow up with cardiology.
--- NOTE | 2024-08-31 16:39 | P.DS ---
Admission Date: 08/31/24 Discharge Date: 08/31/24 Disposition: ROUTINE DISCHARGE Discharge Condition: GOOD Reason for Admission: chest pain Brief History of Present Illness: Patient is 79 years of age admitted with atypical chest pain Hospital Course: Patient was seen by cardiology dense of acute PR or acute coronary disease stabilized see progress note discharged to follow-up with cardiology as an outpatient did have a stress test done in February was negative as per cardiology she remained clinically stable troponins negative EGD no acute changes Vital Signs/Physical Exam: Temp Pulse Resp BP Pulse Ox 97.6 F 62 14 136/70 100 08/31/24 12:00 08/31/24 12:00 08/31/24 12:00 08/31/24 12:00 08/31/24 12:00 Laboratory Data at Discharge: WBC 6.00 thou/uL (4.3-10.9) 08/31/24 01:51 Hgb 12.8 g/dL (12.0-15.0) 08/31/24 01:51 Hct 38.2 % (36.0-45.0) 08/31/24 01:51 Plt Count 199 thou/uL (152-406) 08/31/24 01:51 PT 11.1 SECONDS (9.4-12.5) 08/31/24 01:51 INR 1.06 08/31/24 01:51 Sodium 143 mEq/L (136-145) 08/31/24 01:51 Potassium 3.4 mEq/L (3.5-5.1) L 08/31/24 01:51 BUN 30 mg/dL (7-18) H 08/31/24 01:51 Creatinine 1.25 mg/dL (0.55-1.02) H 08/31/24 01:51 Glucose 109 mg/dL (74-106) H 08/31/24 01:51 Magnesium 2.0 mg/dL (1.6-2.4) 08/31/24 01:51 Total Bilirubin 0.3 mg/dL (0.2-1.0) 08/31/24 01:51 AST 20 U/L (15-37) 08/31/24 01:51 ALT 18 U/L (13-56) 08/31/24 01:51 Alkaline Phosphatase 59 U/L (45-117) 08/31/24 01:51 Triglycerides 103 mg/dL (<150) 08/31/24 05:17 Cholesterol 160 mg/dL (<200) 08/31/24 05:17 HDL Cholesterol 51 mg/dL (40-60) 08/31/24 05:17 Cholesterol/HDL Ratio 3.14 08/31/24 05:17 Home Medications: Aspirin [Aspirin EC 81 MG] 81 mg PO BEDTIME 05/04/14 Magnesium Oxide [Mag 0X*] 250 mg PO DAILY 05/04/14 [place]-3 Fatty Acids [Fish Oil] 1,000 mg PO BID 05/04/14 Zinc 1 tab PO DAILY 05/04/14 Latanoprost Ophth [Xalatan 0.005%*] 1 drop OP BEDTIME 01/04/15 Ca/D3/Mag Ox/Zinc/Roofing Technician/Jayant/Bor [Calcium 600-D3 Plus Caplet] 1 each PO DAILY 11/29/16 timoloL maleate [Timolol Maleate] 1 drop OP Q12H 11/29/16 Famotidine 40 mg PO BEDTIME 09/04/21 Folic Acid 1 mg PO DAILY 09/04/21 carvediloL [Carvedilol] 6.25 mg PO BID 09/04/21 Atorvastatin Calcium 20 mg PO 08/31/24 Losartan/Hydrochlorothiazide [Losartan-Hctz 50-12.5 mg Tab] 08/31/24 Ropinirole HCl 0.25 mg PO 08/31/24 Followup: Danielito Patton MD [ACTIVE - CAN ADMIT] -
[2024-08-31 16:50] VITALS: BP 125/59
[2024-08-31] MEDS ORDERED: carvediloL 6.25 MG TAB PO SCH (17:00)
[2024-08-31 17:53] VITALS: O2SAT 97
[2024-08-31] MEDS ORDERED: ASPIRIN EC 81 MG TAB PO SCH (21:00)
[2024-08-31] MEDS ORDERED: LATANOPROST OPTH SCH (21:00)
[2024-08-31] MEDS ORDERED: ATORVASTATIN 40 MG TAB PO SCH (21:00)
[2024-08-31] MEDS ORDERED: **PT MED**TIMOLOL MALEATE 0.5% OPTH 5 ML BTL OPTH SCH (21:00)
[2024-08-31] MEDS ORDERED: ATORVASTATIN 20 MG TAB PO SCH (21:00)
== END 2024-08-31 17:34 | disposition home or self-care (01) ==
LOC: ER 00:56 → ERHOLD 03:19
PROVIDERS: ADMIT Internal Medicine; ATTEND Internal Medicine Sleep Medicine
DX: R07.89 Other chest pain (principal); I10 Essential (primary) hypertension; E78.5 Hyperlipidemia, unspecified; G25.81 Restless legs syndrome; N18.30 Chronic kidney disease, stage 3 unspecified; Z88.1 Allergy status to other antibiotic agents; Z88.5 Allergy status to narcotic agent; Z88.2 Allergy status to sulfonamides; Z88.8 Allergy status to other drugs, medicaments and biological substances; Z86.73 Personal history of transient ischemic attack (TIA), and cerebral infarction without residual deficits
CPT/HCPCS: 36415; 71045; 80048; 80061; 80076; 83735; 83880; 84484; 85025; 85610; 93005; G0378